=== PATIENT | male | born 1980 ===

== ENCOUNTER 2017-01-06 12:40 | Inpatient (IN) | payer MEDICAID ==
[2017-01-06] MEDS ORDERED: Sodium Chloride 0.9% 1,000 ML IV ONE (12:48)
--- NOTE | 2017-01-06 12:51 | C.PDOC ---
History Of Present Illness The patient, a 36y/o male, presents to the emergency department via EMS for evaluation of severe asthma. 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 As per EMS, patients symptoms improved en route to emergency department. Patients symptoms began around 2-3 days ago. Patient denies fever and states he feels better. Patient has history of prior intubation, does not need intubation at this time. Additional history limited due to patients clinical condition. LIMITED DUE TO CLIN COND PER EMS, ASTHMA SEVERE. PT FOUND RESP DISTRESS. 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 +IMPROVE EN ROUTE. PS SX STARTED 2-3 DAYS. NO FEVER. PS FEELS BETTER. HO PRIOR INTUBATION, DOES NOT NEED INTUBATION @ THIS TIME ROS LIMITED EXAM SEVERE DISTRESS, ON BIPAP HEENT NEG LUNGS TACHYPNEA; DECR BS B/L MOD W EXP WHEEZE; RETRACTIONS; SPEAKING 1-2 WORD CV RRR SINUS TACH SKIN WARM DRY Time Seen by Provider: 01/06/17 12:48 Chief Complaint (Nursing): Respiratory Distress History Per: Patient History/Exam Limitations: clinical condition Current Symptoms Are (Timing): Still Present Associated Symptoms: denies: Fever Additional History Per: Patient Past Medical History Reviewed: Historical Data, Nursing Documentation, Vital Signs Vital Signs: Last Vital Signs Temp 98.2 F 01/06/17 20:13 Pulse 108 H 01/06/17 20:13 Resp 20 01/06/17 20:13 BP 145/89 01/06/17 20:13 Pulse Ox 100 01/06/17 22:46 - Medical History PMH: Anxiety, Asthma, Back Problems, Depression, Fractures (right ankle jaw), Pneumonia (aug 2016 ), Seizures (quetionable due to overdose) Denies: HIV, HTN, Chronic Kidney Disease, Sexually Transmitted Disease Surgical History: No Surg Hx - [facility] Procedures ASSISTANCE WITH RESPIRATORY VENTILATION, 24-96 HRS, CPAP (09/07/16) DRUG DETOXIFICATION (09/23/14) INJECT/INFUSE NEC (07/03/13) INSERTION OF ENDOTRACHEAL AIRWAY INTO TRACHEA, VIA OPENING (11/20/15) RESPIRATORY VENTILATION, 24-96 CONSECUTIVE HOURS (11/20/15) Family History: States: Unknown Family Hx - Social History Hx Tobacco Use: Yes Hx Alcohol Use: No Hx Substance Use: Yes (3-4 years abusing heroin, IV use) - Immunization History Hx Tetanus Toxoid Vaccination: Yes Hx Influenza Vaccination: No Hx Pneumococcal Vaccination: Yes Review Of Systems Review Of Systems: ROS cannot be obtained secondary to pt's inabilty to answer questions. Physical Exam - Physical Exam Appears: Non-toxic, Other (+severe distress, on BiPAP ) Skin: Normal Color, Warm, Dry Head: Atraumatic, Normacephalic Eye(s): bilateral: Normal Inspection, EOMI Ear(s): Bilateral: Normal Nose: Normal, No Discharge Oral Mucosa: Moist Throat: Normal, No Erythema, No Exudate Neck: Normal ROM, Supple Chest: Symmetrical, No Deformity, No Tenderness Cardiovascular: Rhythm Regular, No Murmur, Other (+sinus tachycardia ) Respiratory: Decreased Breath Sounds (bilaterally ), Wheezing (moderate, expiratory ), Other (+tachypnea. speaking 1-2 word sentences. +retractions) Back: Normal Inspection, No Vertebral Tenderness, No Paraspinal Tenderness Extremity: Normal ROM, Capillary Refill (less than 2 seconds) Neurological/Psych: Oriented x3, Normal Speech, Normal Cognition Gait: Steady ED Course And Treatment - Laboratory Results Result Diagrams: 01/06/17 13:36 01/06/17 13:36 ECG: Interpreted By Nh ECG Rhythm: Sinus Tachycardia ECG Interpretation: Abnormal Rate From EC O2 Sat by Pulse Oximetry: 100 (on RA ) Pulse Ox Interpretation: Normal - Other Rad CXR X-Ray: Read By Radiologist Interpretation: Accession No. : [id number]. Patient Name / ID : BRAD JULIAN / [id number]. Exam Date : 01/06/2017 12:56:14 ( Approved ). Study Comment : Sex / Age : M / 36Y. Creator : Chuck Ugarte MD. Dictator : Chuck Ugarte MD. Fire Protection Engineering Technician : Equipment Installation Professional : Chuck Ugarte MD. Approver2 : Report Date : 01/06/2017 13:09:47. My Comment : . PROCEDURE: CHEST RADIOGRAPH, 1 VIEW. HISTORY: SOB. COMPARISON: Comparison chest 11/15. FINDINGS: LUNGS: The interstitial markings are slightly increased and coarsened ; rule out sequela of reactive/inflammatory airway disease and or viral illness. There may be mild atelectasis in the left medial lung base as well. PLEURA: No pneumothorax or pleural fluid seen. CARDIOVASCULAR: Normal. OSSEOUS STRUCTURES: No significant abnormalities. VISUALIZED UPPER ABDOMEN: Normal. OTHER FINDINGS: None. IMPRESSION: The interstitial markings are slightly increased and coarsened ; rule out sequela of reactive/ inflammatory airway disease and or viral illness. There may be mild atelectasis in the left medial lung base as well. Progress Note: Labs, EKG, CXR ordered and reviewed. Pt received IV fluids. Progress - Re-Evaluation Re-evaluation Note: 01/06/17 13:36 APPEARS IMPROVED COMPARED TO INITIAL. VSS. 01/06/17 14:01 D/W DR ESPARZA WILL ADMIT 01/06/17 14:03 D/W DR BOLANOS FOR ICU EVAL WILL EVAL IN ER - Data Reviewed Data Reviewed: Lab, Diagnostic imaging, EKG, Old records - Critical Care Citical Care: Excluding Proc Time Critical Care Time: 90 minutes - Continuity of Care Discussed patient case with:: Patient, PMD Disposition Counseled Patient/Family Regarding: Studies Performed, Diagnosis - Disposition Disposition: HOSPITALIZED Disposition Time: 14:01 Condition: STABLE - POA Present On Arrival: None - Clinical Impression Clinical Impression: Asthma with status asthmaticus - Scribe Statement The provider has reviewed the documentation as recorded by the Scribe (Elin Choe) Provider Attestation: All medical record entries made by the Scribe were at my direction and personally dictated by me. I have reviewed the chart and agree that the record accurately reflects my personal performance of the history, physical exam, medical decision making, and the department course for this patient. I have also personally directed, reviewed, and agree with the discharge instructions and disposition. Decision To Admit - Pt Status Changed To: Hospital Disposition Of: Inpatient - Admit Certification Admit to Inpatient:: After my assessment, the patient will require hospitalization for at least two midnights. This is because of the severity of symptoms shown, intensity of services needed, and/or the medical risk in this patient being treated as an outpatient. - InPatient: Physician Admission Certification:: SEE NOTE - . Bed Request Type: Telemetry Admitting Physician: Kaden Esparza Patient Diagnosis: Asthma with status asthmaticus PROCEDURES - EJ/Peripheral Line Consent Obtained: verbal consent Time Out Performed: Yes Skin Cleansed in Sterile Fashion: Yes Size: 18 IV Secured and Dressing Applied: Yes Patient Tolerated Procedure: Well
--- NOTE | 2017-01-06 13:11 | RAD ---
PROCEDURE: CHEST RADIOGRAPH, 1 VIEW HISTORY: SOB COMPARISON: Comparison chest 11/15/2016 FINDINGS: LUNGS: The interstitial markings are slightly increased and coarsened ; rule out sequela of reactive/inflammatory airway disease and or viral illness. There may be mild atelectasis in the left medial lung base as well. PLEURA: No pneumothorax or pleural fluid seen. CARDIOVASCULAR: Normal. OSSEOUS STRUCTURES: No significant abnormalities. VISUALIZED UPPER ABDOMEN: Normal. OTHER FINDINGS: None. IMPRESSION: The interstitial markings are slightly increased and coarsened ; rule out sequela of reactive/inflammatory airway disease and or viral illness. There may be mild atelectasis in the left medial lung base as well.
[2017-01-06 13:40] LABS: BASO # 0.1 K/uL (0.0-0.2); BASO % 0.4 % (0.0-2.0); EOS # 0.2 K/uL (0.0-0.7); EOS % 1.5 % (0.0-4.0); HEMATOCRIT 42.4 % (35.0-51.0); LYMPH # 0.9 K/uL (1.0-4.3); LYMPH % 5.7 % (20.0-40.0); MEAN CELL VOLUME 84.9 fL (80.0-94.0); MEAN CORPUSCULAR HEMOGLOBIN 27.8 pg (27.0-31.0); MEAN CORPUSCULAR HGB CONC 32.7 g/dL (33.0-37.0); MEAN PLATELET VOLUME 7.8 fL (7.2-11.7); MONO # 0.4 K/uL (0.0-0.8); MONO % 2.5 % (0.0-10.0); PLATELET COUNT 244 K/uL (130-400); RED CELL DISTRIBUTION WIDTH 15.7 % (11.5-14.5); WHITE BLOOD COUNT 14.8 K/uL (4.8-10.8)
[2017-01-06 13:46] LABS: CHLORIDE 99 mmol/L (98-107)
[2017-01-06 13:47] LABS: POTASSIUM 3.9 mmol/L (3.6-5.2); SODIUM 139 mmol/L (132-148)
[2017-01-06 13:49] LABS: GFR AFRICAN-AMERICAN > 60
[2017-01-06 13:50] LABS: BLOOD UREA NITROGEN 13 mg/dL (9-20); CALCIUM 8.7 mg/dl (8.6-10.4); CARBON DIOXIDE 28 mmol/L (22-30); GLUCOSE,RANDOM 143 mg/dL (75-110)
[2017-01-06] MEDS ORDERED: MethylPREDNISolone 40 mg Vial IVP STA (13:55)
[2017-01-06] MEDS ORDERED: guaiFENesin 200 mg/10 ml Syrup UD PO PRN (13:56)
[2017-01-06] MEDS ORDERED: Albuterol 0.083% Inhal Sol (2.5 mg/3 mL) UD ONE (14:09)
[2017-01-06] MEDS: MethylPREDNISolone 40 mg Vial IVP SCH ×2 (14:12→21:50)
[2017-01-06] MEDS: Albuterol 0.083% Inhal Sol (2.5 mg/3 mL) UD INH SCH ×2 (14:17→20:21)
[2017-01-06 14:44] LABS: NEUTROPHIL 86 % (50-75); TOTAL CELLS COUNTED 100
[2017-01-06] MEDS ORDERED: Sodium Chloride 0.9% 1,000 ML ONE (14:58)
[2017-01-06] MEDS ORDERED: MethylPREDNISolone 40 mg Vial IVP SCH (18:00)
[2017-01-07] MEDS: Albuterol 0.083% Inhal Sol (2.5 mg/3 mL) UD INH SCH ×3 (01:20→13:33)
[2017-01-07] MEDS: MethylPREDNISolone 40 mg Vial IVP SCH (10:05)
--- NOTE | 2017-01-07 13:42 | PCM.PSYCH ---
Initial Psychiatric Evaluation - Initial Psychiatric Evaluation Type of Admission: Voluntary Legal Status: Capacity Chief Complaint (in patient's own words): "I'm in pain everywhere" History of Present Illness and Precipitating Events: Pt seen, chart reviewed, case discussed with team. Pt is a 36yo M who is single, lives alone, currently on SSD due to his anxiety and depression. The pt is admitted to for asthma exacerbation, psych was called to consult for pt's opiate use d/o. The patient is well known to the team for multiple visits in the past and one episode of detox 2yrs ago. The pt was seen with the team and appeared to be in active withdrawals, the pt was seen to be uncomfortable and in pain w/ rhinorrhea, abd pain, diarrhea, and nausea. The pt reports that he has been to detox two years ago but only [place]ona to the NA meetings after discharge and managed to stay sober or 4-5 five months. Prior to that period of time, the pt had managed to stay sober for a period of up to 1yr. However, he had relapsed and is now using 10-12 bags of heroin daily. Pt also reports to using xanax, 2mg per day. The patient would like to go to and IOP program or sometime of treatment after discharge this visit. The pt currently denies suicidal ideation, self harming behaviors, homicidal ideation, insomnia, auditory or visual hallucinations. Psych: Depression, Anxiety, Opiate use d/o PMH: Asthma PSH: Jaw and knee surgery Hospitalizations:2-3 times at [facility] [place] Meds: denies Allergies: Aspirin, Iodine FamHx: No significant contributory history Social: 1ppd, 10-12 bags of heroin IV, 2bars of xanax daily. denies EtOH use. Current Medications: Active Medications Generic Name Dose Route Start Last Admin Trade Name Freq PRN Reason Stop Dose Admin Acetaminophen 650 mg 01/06/17 13:57 Tylenol 325mg Tab PO Q6 PRN Headache Albuterol Sulfate 2.5 mg 01/06/17 14:00 01/07/17 13:33 Albuterol 0.083% Inhal Alis (2.5 Mg/3 Ml) Ud INH 2.5 mg RQ6 WENDY Administration Guaifenesin 200 mg 01/06/17 13:56 Robitussin PO Q4H PRN Cough and congestion Methylprednisolone 60 mg 01/06/17 14:15 01/07/17 10:05 Solu-Medrol IVP 60 mg Q12 WENDY Administration Montelukast Sodium 10 mg 01/06/17 22:00 01/06/17 21:50 Singulair PO 10 mg HS WENDY Administration Past Psychiatric History - Past Psychiatric History Previous Treatment History: Inpatient Pertinent Medical Hx (Current Medical&Sleep Prob, Allergies): Allergies Allergy/AdvReac Type Severity Reaction Status Date / Time aspirin Allergy RASH Verified 01/06/17 12:50 iodine Allergy ANAPHYLAXIS Verified 01/06/17 12:50 Albuterol 0.042% [Albuterol 0.042% Inhal Alis (1.25mg/3ml) UD] 3 ml IH Q12H PRN 09/07/16 Albuterol HFA [Ventolin HFA 90 mcg/actuation (8 g)] 2 puff IH [id number] PRN Buprenorphine Hydrochloride [Subutex] 2 mg PO DAILY 11/15/16 Review of Systems - Gastrointestinal Gastrointestinal: Abdominal Pain, Cramping, Diarrhea - Neurological Neurological: UNREMARKABLE - Psychiatric Psychiatric: Anxiety, Difficulty Concentrating, Irritability. absent: Auditory Hallucinations, Hallucinations, Hopelessness, Panic Attacks, Suicidal Ideation, Visual Hallucinations, Tactile Hallucinations Mental Status Examination - Personal Presentation Personal Presentation: Looks stated age - Affect Affect: Constricted - Motor Activity Motor Activity: Calm - Reliability in Providing Information Reliability in Providing Information: Good - Speech Speech: Organized - Mood Mood: Anxious - Formal Thought Process Formal Thought Process: No Impairment - Obsessions/Compulsions Obsessions: No Compulsions: No - Cognitive Functions Orientation: Person, Place, Situation, Time Sensorium: Alert Attention/Concentration: Attentive Abstract Thinking: [place] Estimate of Intelligence: Average Judgement: Intact, as evidence by: Insight regarding need for hospitalization Memory: Recent intact, as evidence by: Ability to recall events of the day, Remote intact, as evidenced by: Ability to recall historical events - Risk Risk: Withdrawal - Limitations Limitations: Living alone DSM 5 DX - DSM 5 DSM 5 Diagnosis: Primary: Opiate use d/o - severe Opiate withdrawal - severe - Recommended/Plan of Treatment Treatment Recommendations and Plan of Treatment: Opiate use d/o - severe -supportive therapy -CT for abstinence Opiate withdrawal - severe -Start methadone taper -prn meds as needed -supportive therapy -monitor for signs of worsening withdrawal
[2017-01-07 15:46] VITALS: BP 134/80; PULSE 86; RESP 18; TEMP 98.6; O2SAT 97
--- NOTE | 2017-01-07 20:16 | CARD ---
APPROVED REPORT EKG Measurement Heart [id number] <Conclusion> Sinus tachycardia Minimal voltage criteria for LVH, may be normal variant Abnormal ECG
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
--- NOTE | 2017-01-08 00:34 | CP.PCM.DIS ---
Provider - Provider Date of Admission: 01/06/17 14:05 Attending physician: Kaden Esparza MD Diagnosis - Discharge Diagnosis (1) Asthma exacerbation Status: Acute Priority: High (2) Opiate dependence Status: Acute Priority: Medium (3) Accidental overdose of heroin Status: Acute Hospital Course - Lab Results Lab Results: Most Recent Lab Values WBC 14.8 K/uL (4.8-10.8) H D 01/06/17 13:36 RBC 5.00 Mil/uL (4.40-5.90) 01/06/17 13:36 Hgb 13.9 g/dL (12.0-18.0) 01/06/17 13:36 Hct 42.4 % (35.0-51.0) 01/06/17 13:36 MCV 84.9 fL (80.0-94.0) 01/06/17 13:36 MCH 27.8 pg (27.0-31.0) 01/06/17 13:36 MCHC 32.7 g/dL (33.0-37.0) L 01/06/17 13:36 RDW 15.7 % (11.5-14.5) H 01/06/17 13:36 Plt Count 244 K/uL (130-400) 01/06/17 13:36 MPV 7.8 fL (7.2-11.7) 01/06/17 13:36 Neut % (Auto) 89.9 % (50.0-75.0) H 01/06/17 13:36 Lymph % (Auto) 5.7 % (20.0-40.0) L 01/06/17 13:36 [place] % (Auto) 2.5 % (0.0-10.0) 01/06/17 13:36 Eos % (Auto) 1.5 % (0.0-4.0) 01/06/17 13:36 Baso % (Auto) 0.4 % (0.0-2.0) 01/06/17 13:36 Neut # 13.3 K/uL (1.8-7.0) H 01/06/17 13:36 Lymph # 0.9 K/uL (1.0-4.3) L 01/06/17 13:36 [place] # 0.4 K/uL (0.0-0.8) 01/06/17 13:36 Eos # 0.2 K/uL (0.0-0.7) 01/06/17 13:36 Baso # 0.1 K/uL (0.0-0.2) 01/06/17 13:36 Neutrophils % (Manual) 86 % (50-75) H 01/06/17 13:36 Band Neutrophils % 8 % (0-2) H 01/06/17 13:36 Lymphocytes % (Manual) 3 % (20-40) L 01/06/17 13:36 Monocytes % (Manual) 3 % (0-10) 01/06/17 13:36 Platelet Estimate Normal (NORMAL) 01/06/17 13:36 RBC Morphology Normal 01/06/17 13:36 Sodium 139 mmol/L (132-148) 01/06/17 13:36 Potassium 3.9 mmol/L (3.6-5.2) 01/06/17 13:36 Chloride 99 mmol/L (98-107) 01/06/17 13:36 Carbon Dioxide 28 mmol/L (22-30) 01/06/17 13:36 Anion Gap 15 (10-20) 01/06/17 13:36 BUN 13 mg/dL (9-20) 01/06/17 13:36 Creatinine 0.8 MG/DL (0.8-1.5) 01/06/17 13:36 Est GFR ( Amer) > 60 01/06/17 13:36 Est GFR (Non-Af Amer) > 60 01/06/17 13:36 Random Glucose 143 mg/dL (75-110) H 01/06/17 13:36 Calcium 8.7 mg/dl (8.6-10.4) 01/06/17 13:36 - Hospital Course Hospital Course: Pt came in with heroin witthdrawn symtoms, he was given methadone yesterday, he say that he feels better, pt is to continue nebulizer treatment, salmetrol and further medical evaluation although pt signed out against medical advice Discharge Exam - Head Exam Head Exam: ATRAUMATIC, NORMAL INSPECTION, NORMOCEPHALIC - Eye Exam Eye Exam: Normal appearance - ENT Exam ENT Exam: Mucous Membranes Moist - Respiratory Exam Respiratory Exam: Decreased Breath Sounds, Rhonchi - Cardiovascular Exam Cardiovascular Exam: REGULAR RHYTHM, +S1, +S2 - GI/Abdominal Exam GI & Abdominal Exam: Normal Bowel Sounds - Skin Additional comments: multiple needle jones and tatoes Discharge Plan - Follow Up Plan Condition: STABLE Disposition: AGAINST MEDICAL ADVICE
== END 2017-01-07 16:40 | disposition left against medical advice (07) | DRG 96 ==
LOC: C.ER 12:40 → C.9E 14:05 → C.6T 18:59
PROVIDERS: ADMIT Internal Medicine; ATTEND Internal Medicine
DX: J45.902 Unspecified asthma with status asthmaticus (principal); F11.23 Opioid dependence with withdrawal; J44.9 Chronic obstructive pulmonary disease, unspecified; T40.1X1A Poisoning by heroin, accidental (unintentional), initial encounter; F32.9 Major depressive disorder, single episode, unspecified; F41.9 Anxiety disorder, unspecified; F17.210 Nicotine dependence, cigarettes, uncomplicated

== ENCOUNTER 2017-01-27 12:47 | Observation (INO) | payer MEDICAID ==
[2017-01-27] MEDS ORDERED: Sodium Chloride 0.9% 1,000 ML IV ONE (12:55)
[2017-01-27] MEDS ORDERED: Albuterol-Ipratrop 3 mg / 0.5 (3 ml) UD INH STA ×2 (12:56→13:38)
[2017-01-27] MEDS ORDERED: Albuterol-Ipratrop 3 mg / 0.5 (3 ml) UD ONE ×2 (13:01→13:51)
[2017-01-27] MEDS ORDERED: Sodium Chloride 0.9% 1,000 ML ONE (13:01)
--- NOTE | 2017-01-27 13:13 | RAD ---
PROCEDURE: CHEST RADIOGRAPH, 1 VIEW. Technique: Single view portable semi erect @ 12:58. HISTORY: SOB COMPARISON: 01/06/2017. FINDINGS: LUNGS: Clear. PLEURA: No pneumothorax or pleural fluid seen. CARDIOVASCULAR: Normal. OSSEOUS STRUCTURES: No significant abnormalities. VISUALIZED UPPER ABDOMEN: Normal. OTHER FINDINGS: None. IMPRESSION: No active disease. No acute/significant interval changes.
[2017-01-27 13:18] LABS: BASO # 0.1 K/uL (0.0-0.2); BASO % 0.4 % (0.0-2.0); EOS # 0.6 K/uL (0.0-0.7); EOS % 4.9 % (0.0-4.0); HEMATOCRIT 40.6 % (35.0-51.0); LYMPH # 2.6 K/uL (1.0-4.3); LYMPH % 22.2 % (20.0-40.0); MEAN CELL VOLUME 85.2 fL (80.0-94.0); MEAN CORPUSCULAR HEMOGLOBIN 27.6 pg (27.0-31.0); MEAN CORPUSCULAR HGB CONC 32.3 g/dL (33.0-37.0); MEAN PLATELET VOLUME 7.9 fL (7.2-11.7); MONO # 0.6 K/uL (0.0-0.8); MONO % 4.8 % (0.0-10.0); RED CELL DISTRIBUTION WIDTH 16.1 % (11.5-14.5); WHITE BLOOD COUNT 11.7 K/uL (4.8-10.8)
[2017-01-27 13:33] LABS: CHLORIDE 99 mmol/L (98-107); SODIUM 136 mmol/L (132-148)
[2017-01-27 13:34] LABS: POTASSIUM 3.8 mmol/L (3.6-5.2)
[2017-01-27 13:35] LABS: GFR AFRICAN-AMERICAN > 60
[2017-01-27 13:36] LABS: ALB/GLOB RATIO 1.3 (1.0-2.1); ALKALINE PHOSPHATASE 90 U/L (38-126); ALT/SGPT 25 U/L (21-72); AST/SGOT 24 U/L (17-59); BILIRUBIN,TOTAL 0.3 mg/dL (0.2-1.3); BLOOD UREA NITROGEN 13 mg/dL (9-20); CARBON DIOXIDE 25 mmol/L (22-30); GLUCOSE,RANDOM 167 mg/dL (75-110); TOTAL PROTEIN 7.4 g/dL (6.3-8.3)
[2017-01-27 13:37] LABS: CALCIUM 8.6 mg/dl (8.6-10.4)
--- NOTE | 2017-01-27 13:49 | C.PDOC ---
History Of Present Illness 36 year old male with a history of asthma, presents to the ED via ALS with complaints of SOB and wheezing. Patient was found in severe respiratory distress and was given Solu-Medrol 125mg, 2.5 mg Brethine subcutaneously, DuoNeb x2, and placed on Bipap. He has a history of heroin abuse and states his last use was yesterday. Time Seen by Provider: 01/27/17 12:53 Chief Complaint (Nursing): Shortness Of Breath History Per: Patient, EMS History/Exam Limitations: no limitations Onset/Duration Of Symptoms: Hrs Current Symptoms Are (Timing): Still Present Past Medical History Reviewed: Historical Data, Nursing Documentation, Vital Signs Vital Signs: Last Vital Signs Temp 98.4 F 01/28/17 07:00 Pulse 104 H 01/28/17 09:00 Resp 20 01/28/17 07:00 BP 143/78 01/28/17 07:00 Pulse Ox 95 01/28/17 07:00 - Medical History PMH: Anxiety, Asthma, Back Problems, Depression, Fractures (right ankle jaw), Pneumonia (aug 2016 ), Seizures (quetionable due to overdose) - [facility] Procedures ASSISTANCE WITH RESPIRATORY VENTILATION, 24-96 HRS, CPAP (09/07/16) DRUG DETOXIFICATION (09/23/14) INJECT/INFUSE NEC (07/03/13) INSERTION OF ENDOTRACHEAL AIRWAY INTO TRACHEA, VIA OPENING (11/20/15) RESPIRATORY VENTILATION, 24-96 CONSECUTIVE HOURS (11/20/15) Family History: States: Unknown Family Hx - Social History Hx Tobacco Use: Yes (1/2 pack) Hx Alcohol Use: No Hx Substance Use: Yes (3-4 years abusing heroin, IV use 5-6 bags) - Immunization History Hx Tetanus Toxoid Vaccination: Yes Hx Influenza Vaccination: No Hx Pneumococcal Vaccination: Yes Review Of Systems Except As Marked, All Systems Reviewed And Found Negative. Constitutional: Negative for: Fever, Chills Cardiovascular: Negative for: Chest Pain, Palpitations Respiratory: Positive for: Shortness of Breath, Wheezing Gastrointestinal: Negative for: Vomiting Physical Exam - Physical Exam Appears: Non-toxic, Other (+Severe respiratory distress) Skin: Normal Color, Warm, Dry Head: Atraumatic, Normacephalic Eye(s): bilateral: Normal Inspection Oral Mucosa: Moist Chest: Symmetrical, No Deformity Cardiovascular: Rhythm Regular Respiratory: No Accessory Muscle Use, Rhonchi (+Scattered rhonchi), Wheezing, Other (Poor air movement) Extremity: Normal ROM Neurological/Psych: Oriented x3 ED Course And Treatment - Laboratory Results Result Diagrams: 01/27/17 13:12 01/27/17 13:12 Lab Interpretation: Normal (trop neg.) ECG: Interpreted By Me ECG Rhythm: Sinus Tachycardia ECG Interpretation: Abnormal Rate From EC O2 Sat by Pulse Oximetry: 100 Pulse Ox Interpretation: Normal - Radiology CXR: Viewed By Me, Read By Radiologist CXR Interpretation: Yes: No Acute Disease, Other (hyperinflated) Progress Note: CXR, EKG, and Blood work ordered and reviewed. Patient treated with Prednisone, Brethine, and DuoNeb. Reevaluation Time: 15:24 Reassessment Condition: Improved (but still hypoxic on RA and unsuitable for d/ c home.) - Physician Consult Information Outcome Of Conversation: 1515: d/w PMD Dr. Dominique crowder to Tele Obs. Critical Care Time - Critical Care Note Total Time (in mins): 90 Documented critical care: time excludes all time spent performing seperately billable procedures. Disposition Doctor Will See Patient In The: Hospital Counseled Patient/Family Regarding: Studies Performed, Diagnosis - Disposition Disposition: HOSPITALIZED Disposition Time: 15:25 Condition: FAIR - Clinical Impression Clinical Impression: Asthma with status asthmaticus - Scribe Statement The provider has reviewed the documentation as recorded by the Scribe Brooke Pike. Provider Attestation: All medical record entries made by the Scribe were at my direction and personally dictated by me. I have reviewed the chart and agree that the record accurately reflects my personal performance of the history, physical exam, medical decision making, and the department course for this patient. I have also personally directed, reviewed, and agree with the discharge instructions and disposition.
[2017-01-27] MEDS ORDERED: guaiFENesin DM 200 mg-20 mg/10 ml UD PO PRN (19:28)
[2017-01-27] MEDS ORDERED: Albuterol 0.083% Inhal Sol (2.5 mg/3 mL) UD INH PRN (19:31)
[2017-01-27] MEDS ORDERED: Albuterol-Ipratrop 3 mg / 0.5 (3 ml) UD INH SCH (20:00)
[2017-01-27] MEDS ORDERED: Fluticasone-Salmeterol 250-50mcg Diskus INH SCH (20:00)
[2017-01-27] MEDS ORDERED: MethylPREDNISolone 40 mg Vial IVP SCH ×2 (22:00)
[2017-01-27] MEDS: MethylPREDNISolone 40 mg Vial IVP SCH (22:04)
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
[2017-01-27 23:35] VITALS: RESP 20
[2017-01-28] MEDS ORDERED: Albuterol-Ipratrop 3 mg / 0.5 (3 ml) UD INH STA (04:19)
[2017-01-28] MEDS: MethylPREDNISolone 40 mg Vial IVP SCH ×2 (06:39→13:55)
[2017-01-28 09:38] VITALS: BP 143/78; PULSE 104; TEMP 98.4
[2017-01-28] MEDS ORDERED: Pantoprazole 40 mg EC Tab PO SCH (10:00)
--- NOTE | 2017-01-28 12:01 | CARD ---
APPROVED REPORT EKG Measurement Heart [id number] <Conclusion> Sinus tachycardia Cannot rule out Inferior infarct, age undetermined Abnormal ECG
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
[2017-01-28] MEDS ORDERED: Albuterol 0.083% Inhal Sol (2.5 mg/3 mL) UD INH SCH (20:00)
[2017-01-29 00:33] VITALS: O2SAT 100
== END 2017-01-28 16:05 | disposition left against medical advice (07) ==
LOC: C.ER 12:47 → C.9E 15:21 → C.5T 17:15
PROVIDERS: ADMIT Internal Medicine; ATTEND Internal Medicine
DX: J45.902 Unspecified asthma with status asthmaticus (principal); F11.23 Opioid dependence with withdrawal; F43.10 Post-traumatic stress disorder, unspecified; F17.200 Nicotine dependence, unspecified, uncomplicated; Z68.20 Body mass index [BMI] 20.0-20.9, adult; F14.10 Cocaine abuse, uncomplicated; F41.0 Panic disorder [episodic paroxysmal anxiety]
CPT/HCPCS: 71010; 80053; 80324; 80345; 80346; 80349; 80353; 80358; 80361; 83992; 84484; 85025; 93005; 94150; 94640; 94660; 96372; 99285; G0378; J2270; J2920; J3105; J7040

== ENCOUNTER 2017-04-10 14:16 | Emergency (ER) | payer MEDICARE ==
[2017-04-10 14:19] VITALS: BMI 21.5
[2017-04-10] MEDS ORDERED: Morphine 4 MG/ML VIAL IV STA (14:19)
[2017-04-10] MEDS ORDERED: Morphine 4 MG/ML VIAL ONE (14:26)
[2017-04-10] MEDS ORDERED: Morphine 4 MG/ML VIAL IM STA (14:41)
[2017-04-10 15:19] VITALS: RESP 18; TEMP 98.1
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
--- NOTE | 2017-04-10 15:58 | RAD ---
PROCEDURE: Left Ankle Radiographs. HISTORY: left ankle pain swelling COMPARISON: None FINDINGS: BONES: A horizontal medial malleoli are fracture at the tibial plafond level is noted with extension to the the talar joint. Light medial cortical offset no more extensive to displacement suggested. Overlying soft tissue swelling present 1 joint effusion is inferred. No talar dome osteochondral lesion appreciated. A well corticated ossification projects over the inferior lateral malleolus probably relating to remote osseous avulsion. JOINTS: As above SOFT TISSUES: As above OTHER FINDINGS: None. IMPRESSION: e.d. of malleoli fracture with intra-articular extension and other findings.
--- NOTE | 2017-04-10 16:00 | RAD ---
PROCEDURE: Left Foot Radiographs. HISTORY: r/o fx COMPARISON: None FINDINGS: BONES: A medial malleoli are fracture is noted in detail on the left ankle x-ray report no definitive cortical fracture elsewhere in the foot appreciated. The trabecular markings are borderline increased along the medial navicular bone. Point tenderness here is are present, consider MRI to evaluate for any potential marrow edema or trabecular microfractures JOINTS: As noted on the ankle x-ray report SOFT TISSUES: Soft tissue swelling present OTHER FINDINGS: None. IMPRESSION: Medial malleoli fracture detailed on the left ankle report Other findings as above
--- NOTE | 2017-04-10 16:01 | RAD ---
PROCEDURE: Radiographs of the left calcaneus/hindfoot. HISTORY: r/o fx COMPARISON: None available. TECHNIQUE: Frontal and lateral radiographs of the calcaneus. FINDINGS: No fracture or joint dislocation. No focal lesion. No calcaneal spur. IMPRESSION: Unremarkable radiographs of the left calcaneus /hindfoot. Patient's medial malleolar fracture is not well appreciated on this exam
--- NOTE | 2017-04-10 16:03 | RAD ---
PROCEDURE: Radiographs of the left tibia and fibula. HISTORY: r/o fx COMPARISON: None available. TECHNIQUE: Frontal and lateral views obtained. FINDINGS: BONES: Medial malleolar fracture appear with slight medial cortical offset. Extension to the tibiotalar joint. Overlying medial soft tissue swelling. Overlying casting material JOINT SPACES: Unremarkable. OTHER FINDINGS: None. IMPRESSION: Medial malleoli are fracture detailed on the ankle with intra-articular extension - now casted No change in positioning appreciated
[2017-04-10 16:06] VITALS: BP 124/78; PULSE 75; O2SAT 98
--- NOTE | 2017-04-10 16:27 | C.PDOC ---
History Of Present Illness 37 yr old male presents to the ER stating he was climbing up to get to his window when he fell 15ft onto his left leg. Reports moderate to severe left ankle pain. Denies LOC, back pain, hip pain, knee pain, weakness or numbness. Time Seen by Provider: 04/10/17 14:38 Chief Complaint (Nursing): Lower Extremity Problem/Injury History Per: Patient History/Exam Limitations: no limitations Onset/Duration Of Symptoms: Sudden Onset ([employer]) Current Symptoms Are (Timing): Still Present Past Medical History Reviewed: Historical Data, Nursing Documentation, Vital Signs Vital Signs: Last Vital Signs Temp 98.1 F 04/10/17 15:17 Pulse 75 04/10/17 16:06 Resp 18 04/10/17 16:06 BP 124/78 04/10/17 16:06 Pulse Ox 98 04/10/17 16:32 - Medical History PMH: Anxiety, Asthma, Back Problems, Depression, Fractures (right ankle jaw), Pneumonia (aug 2016 ), Seizures (quetionable due to overdose) - [facility] Procedures ASSISTANCE WITH RESPIRATORY VENTILATION, 24-96 HRS, CPAP (09/07/16) DRUG DETOXIFICATION (09/23/14) INJECT/INFUSE NEC (07/03/13) INSERTION OF ENDOTRACHEAL AIRWAY INTO TRACHEA, VIA OPENING (11/20/15) RESPIRATORY VENTILATION, 24-96 CONSECUTIVE HOURS (11/20/15) Family History: States: No Known Family Hx - Social History Hx Tobacco Use: Yes (1/2 pack) Hx Alcohol Use: Yes Hx Substance Use: Yes (heroin abuse 6 years) - Immunization History Hx Tetanus Toxoid Vaccination: Yes Hx Influenza Vaccination: No Hx Pneumococcal Vaccination: Yes Review Of Systems Except As Marked, All Systems Reviewed And Found Negative. Musculoskeletal: Positive for: Other ((+) Left ankle pain ). Negative for: Back Pain Neurological: Negative for: Weakness, Numbness Physical Exam - Physical Exam Appears: Non-toxic, No Acute Distress Skin: Warm, Dry Head: Atraumatic, Normacephalic Back: Normal Inspection, No CVA Tenderness Extremity: No Tenderness (Left knee and hip.), No Calf Tenderness, Capillary Refill (<2), Other (Left Ankle - Swelling and deformity to left ankle. Decrease ROM. ) Neurological/Psych: Oriented x3, Normal Speech, Normal Motor ED Course And Treatment O2 Sat by Pulse Oximetry: 98 - Other Rad X-Ray - Left Tibia Fibula X-Ray: Viewed By Me, Read By Radiologist Interpretation: PROCEDURE: Radiographs of the left tibia and fibula. HISTORY: r/o fx. COMPARISON: None available. TECHNIQUE: Frontal and lateral views obtained. FINDINGS: BONES: Medial malleolar fracture appear with slight medial cortical offset. Extension to the tibiotalar joint. Overlying medial soft tissue swelling. Overlying casting material. JOINT SPACES: Unremarkable. OTHER FINDINGS: None. IMPRESSION: Medial malleoli are fracture detailed on the ankle with intra-articular extension - now casted. No change in positioning appreciated X-Ray - Left Heel X-Ray: Viewed By Me, Read By Radiologist Interpretation: PROCEDURE: Radiographs of the left calcaneus/hindfoot. HISTORY : r/o fx. COMPARISON: None available. TECHNIQUE: Frontal and lateral radiographs of the calcaneus. FINDINGS: No fracture or joint dislocation. No focal lesion. No calcaneal spur. IMPRESSION: Unremarkable radiographs of the left calcaneus /hindfoot. Patient's medial malleolar fracture is not well appreciated on this exam. X-Ray - Left Foot X-Ray: Viewed By Me, Read By Radiologist Interpretation: PROCEDURE: Left Foot Radiographs. HISTORY: r/o fx. COMPARISON: None. FINDINGS: BONES: A medial malleoli are fracture is noted in detail on the left ankle x-ray report no definitive cortical fracture elsewhere in the foot appreciated. The trabecular markings are borderline increased along the medial navicular bone. Point tenderness here is are present , consider MRI to evaluate for any potential marrow edema or trabecular microfractures. JOINTS: As noted on the ankle x-ray report. SOFT TISSUES: Soft tissue swelling present. OTHER FINDINGS: None. IMPRESSION: Medial malleoli fracture detailed on the left ankle report. Other findings as above. X-Ray - Left Ankle X-Ray: Viewed By Me, Read By Radiologist Interpretation: PROCEDURE: Left Ankle Radiographs. HISTORY: left ankle pain swelling. COMPARISON: None. FINDINGS: BONES: A horizontal medial malleoli are fracture at the tibial plafond level is noted with extension to the the talar joint. Light medial cortical offset no more extensive to displacement suggested. Overlying soft tissue swelling present 1 joint effusion is inferred. No talar dome osteochondral lesion appreciated. A well corticated ossification projects over the inferior lateral malleolus probably relating to remote osseous avulsion. JOINTS: As above. SOFT TISSUES: As above. OTHER FINDINGS: None. IMPRESSION: e.d. of malleoli fracture with intra-articular extension and other findings. Medical Decision Making Medical Decision Making: PLAN: * X-Ray - Left Ankle, Left Foot, Left Heel, Left Tibia Fibula * Morphine IM Disposition - Disposition Referrals: Gini Urrutia MD [Staff Provider] - Kaden Esparza MD [Primary Care Provider] - Disposition: HOME/ ROUTINE Disposition Time: 15:30 Condition: GOOD Additional Instructions: Thank you for letting us take care of you today. Your provider was Dr. Guillory. You were treated for an ankle fracture. The emergency medical care you received today was directed at your acute symptoms. If you were prescribed any medication, please fill it and take as directed. It may take several days for your symptoms to resolve. Return to the Emergency Department if your symptoms worsen, do not improve, or if you have any other problems. Please contact your doctor or call one of the physicians/clinics you have been referred to that are listed on the Patient Visit Information form that is included in your discharge packet. Bring any paperwork you were given at discharge with you along with any medications you are taking to your follow up visit. Our treatment cannot replace ongoing medical care by a primary care provider (PCP) outside of the emergency department. Thank you for allowing the [facility] team to be part of your care today. DO NOT PUT ANY WEIGHT ON YOUR LEFT LEG. KEEP THE LEG ELEVATED MUCH POSSIBLE. DO NOT TAKE THE SPLINT OFF OR GET IT WET AT ANYTIME. CALL DR. URRUTIA TOMORROW MORNING TO BE AN APPOINTMENT FOR FOLLOWUP. YOU MAY NEED SURGERY. Prescriptions: oxyCODONE [oxyCODONE Immediate Release Tab] 5 mg PO Q6 PRN #15 tab PRN Reason: Pain, Severe (8-10) Instructions: Ankle Fracture (ED), Crutch Instructions (ED) - Clinical Impression Clinical Impression: Ankle fracture - Scribe Statement The provider has reviewed the documentation as recorded by the Scribe Melissa Cruz Provider Attestation: All medical record entries made by the Scribe were at my direction and personally dictated by me. I have reviewed the chart and agree that the record accurately reflects my personal performance of the history, physical exam, medical decision making, and the department course for this patient. I have also personally directed, reviewed, and agree with the discharge instructions and disposition.
== END 2017-04-10 16:08 | disposition home or self-care (01) ==
LOC: C.ER 14:16 → SUPCPDRO 14:16 → C.ER 16:08
DX: S82.52XA Displaced fracture of medial malleolus of left tibia, initial encounter for closed fracture (principal); W17.89XA Other fall from one level to another, initial encounter; Y92.008 Other place in unspecified non-institutional (private) residence as the place of occurrence of the external cause
CPT/HCPCS: 29515; 73590; 73610; 73630; 73650; 96372; 97116; 97161; 99285; G8978; G8979; G8980; J2270

== ENCOUNTER 2017-04-12 19:13 | Emergency (ER) | payer MEDICARE ==
[2017-04-12 19:14] VITALS: BMI 21.5
[2017-04-12 19:48] VITALS: BP 110/73; PULSE 81; TEMP 98.1; O2SAT 98
--- NOTE | 2017-04-12 21:03 | C.PDOC ---
History Of Present Illness 37 year old male presents to the ED with complaints of left ankle pain. Patient states he was seen at [facility] ED on 04/10/2017 after falling and was diagnosed with a left ankle fracture and placed in a splint. He was instructed to follow up with orthopedist and was prescribed oxycodone however he states he was unable to fill the prescription and unable to make appointment with orthopedist due to insurance. Patient states splint is tight and is requesting that it be readjusted. denies any recent trauma or other complaints at this time. Time Seen by Provider: 04/12/17 20:39 Chief Complaint (Nursing): Lower Extremity Problem/Injury History Per: Patient History/Exam Limitations: no limitations Onset/Duration Of Symptoms: Days (original fall occured on 04/10/17 ) Current Symptoms Are (Timing): Still Present Recent travel outside of the [place]: No Additional History Per: Prior Records Past Medical History Reviewed: Historical Data, Nursing Documentation, Vital Signs Vital Signs: Last Vital Signs Temp 98.1 F 04/12/17 19:44 Pulse 81 04/12/17 19:44 Resp 20 04/12/17 23:07 BP 110/73 04/12/17 19:44 Pulse Ox 98 04/13/17 07:20 - Medical History PMH: Anxiety, Asthma, Back Problems, Depression, Fractures (right ankle jaw), Pneumonia (aug 2016 ), Seizures (quetionable due to overdose) - [facility] Procedures ASSISTANCE WITH RESPIRATORY VENTILATION, 24-96 HRS, CPAP (09/07/16) DRUG DETOXIFICATION (09/23/14) INJECT/INFUSE NEC (07/03/13) INSERTION OF ENDOTRACHEAL AIRWAY INTO TRACHEA, VIA OPENING (11/20/15) RESPIRATORY VENTILATION, 24-96 CONSECUTIVE HOURS (11/20/15) Family History: States: Unknown Family Hx - Social History Hx Tobacco Use: Yes (1/2 pack) Hx Alcohol Use: Yes Hx Substance Use: Yes (heroin abuse 6 years) - Immunization History Hx Tetanus Toxoid Vaccination: Yes Hx Influenza Vaccination: No Hx Pneumococcal Vaccination: Yes Review Of Systems Musculoskeletal: Positive for: Foot Pain (left ankle pain ). Negative for: Back Pain, Leg Pain Neurological: Negative for: Weakness, Numbness Physical Exam - Physical Exam Appears: Non-toxic, No Acute Distress Skin: Warm, Dry Eye(s): bilateral: Normal Inspection, PERRL, EOMI Neck: Normal, Midline Cervical Tenderness Extremity: No Pedal Edema, No Calf Tenderness, Capillary Refill (good capillary refill less than two seconds ), Other (moderate ecchymosis to left second, third , and fourth toes. Posterior splint with U components in place with padding appearing slightly tight at dorsal foot and anterior ankle. Splint is also dirty and wet. ) Pulses: Left Dorsalis Pedis: Normal, Right Dorsalis Pedis: Normal Neurological/Psych: Oriented x3 Additional Physical Exam Comments: Extremities: Splint removal revealed whitish discoloration to plantar aspect of left foot. Also showed moderate left lower leg ecchymosis and small blister to distal aspect of lower leg medially. No open wounds or lesions. ED Course And Treatment O2 Sat by Pulse Oximetry: 98 (room air ) Pulse Ox Interpretation: Normal Progress Note: Percocet PO given. small blister was cleaned with betadine, 18 G needle inserted to aspirate blister with minimally serosanguinous fluid drained. Bacitracin applied with non-adherent dressing, then thick padding with splint applied by CP. Pt is requesting a new script for percocet, [place] checked and oxycodeone rx given on 04/12 has not been filled. Pt instructed to follow up with [facility] or [facility], [facility] ( [facility] ) and to be non weight bearing. Pt agrees with plan and return preautions were discussed Reassessment Condition: Improved - Physician Consult Information Time Consulting Physician Contacted: 21:30 (Dr. Urrutia was being covered by Dr. Rosa ) Physician Contacted: Moe Outcome Of Conversation: Dr. Rosa advised for patient to follow up in orthopedic free clinic and to reiterate to patient to be nonn weight bearing on the left ankle. Orthopedic Time Performed: 22:30 Procedure: Splint Type: Posterior (with U component ) Location: Left, Leg (left lower leg ) Consent obtained: Verbal Performed by: Mid-level Provider (done by CP, checked by me) Diagnosis: Fracture (left ankle fracture diagnosed and originally splinted on at [facility] ED ) Patient tolerated procedure: Well Notes:: Large padding moderate amount and soft padding applied to left lower extremity. Medical Decision Making Medical Decision Making: Patient was also given crutches following splint re-application. Disposition Counseled Patient/Family Regarding: Diagnosis, Need For Followup - Disposition Referrals: [facility] [Outside] [facility] [Outside] [facility] at [place] [Outside] Disposition: HOME/ ROUTINE Disposition Time: 21:02 Condition: STABLE Additional Instructions: Please follow up with ortho clinic here at [facility] or at [place] / Call for dates clinic meet Or may follow up with your insurance to get orthopedic referral Take pain meds prescribed Return to ER if worse Prescriptions: oxyCODONE/Acetaminophen [Percocet 5/325 mg Tab] 1 tab PO QID PRN #14 tab PRN Reason: Pain Instructions: Ankle Fracture (ED) - Clinical Impression Clinical Impression: Ankle fracture - Scribe Statement The provider has reviewed the documentation as recorded by the Scribbrii Mercedes All medical record entries made by the Popibbrii were at my direction and personally dictated by me. I have reviewed the chart and agree that the record accurately reflects my personal performance of the history, physical exam, medical decision making, and the department course for this patient. I have also personally directed, reviewed, and agree with the discharge instructions and disposition.
[2017-04-12] MEDS ORDERED: Oxycodone/Acetaminophen 5/325 mg Tab PO STA (22:03)
[2017-04-12] MEDS ORDERED: Oxycodone/Acetaminophen 5/325 mg Tab ONE (22:05)
[2017-04-12 23:10] VITALS: RESP 20
== END 2017-04-12 23:07 | disposition home or self-care (01) ==
LOC: C.ER 19:13
DX: S82.52XD Displaced fracture of medial malleolus of left tibia, subsequent encounter for closed fracture with routine healing (principal); W17.89XD Other fall from one level to another, subsequent encounter

== ENCOUNTER 2017-04-25 17:43 | Inpatient (IN) | payer MEDICAID, MEDICARE ==
[2017-04-25 17:43] VITALS: BMI 21.5
[2017-04-25] MEDS ORDERED: MethylPREDNISolone 40 mg Vial IVP STA (17:52)
[2017-04-25] MEDS ORDERED: Albuterol-Ipratrop 3 mg / 0.5 (3 ml) UD INH STA ×5 (17:52→19:10)
[2017-04-25] MEDS ORDERED: Albuterol-Ipratrop 3 mg / 0.5 (3 ml) UD ONE ×2 (18:02→19:20)
--- NOTE | 2017-04-25 18:05 | C.PDOC ---
History Of Present Illness 37 y/o male pmhx opiate/substance abuse, asthma previously intubated; presents to the ED with complaints of SOB. Per EMS, called to seen for complaints of SOB. Pt reports using Xanax today. At bedside, pt with increased work of breathing, accessory muscle use. No family at bedside. Reviewed prior records, multiple admissions for asthma. Denies fever or any other complaints. Time Seen by Provider: 04/25/17 17:46 Chief Complaint (Nursing): Shortness Of Breath History Per: Patient Onset/Duration Of Symptoms: Hrs Current Symptoms Are (Timing): Still Present Severity: Moderate Associated Symptoms: denies: Fever Recent travel outside of the [place]: No Additional History Per: EMS Past Medical History Reviewed: Historical Data, Nursing Documentation, Vital Signs Vital Signs: Last Vital Signs Temp 96 F L 04/25/17 17:54 Pulse 127 H 04/25/17 18:53 Resp 39 H 04/25/17 18:53 BP 178/106 H 04/25/17 18:53 Pulse Ox 100 04/25/17 20:01 - Medical History PMH: Anxiety, Asthma, Back Problems, Depression, Fractures (fracture left ankle from a fall), Pneumonia (aug 2016 ), Seizures (questionable due to overdose) Denies: Chronic Kidney Disease - [facility] Procedures ASSISTANCE WITH RESPIRATORY VENTILATION, 24-96 HRS, CPAP (09/07/16) DRUG DETOXIFICATION (09/23/14) INJECT/INFUSE NEC (07/03/13) INSERTION OF ENDOTRACHEAL AIRWAY INTO TRACHEA, VIA OPENING (11/20/15) RESPIRATORY VENTILATION, 24-96 CONSECUTIVE HOURS (11/20/15) Family History: States: Unknown Family Hx - Social History Hx Tobacco Use: Yes (1/2 pack) Hx Alcohol Use: Yes Hx Substance Use: Yes (heroin abuse) - Immunization History Hx Tetanus Toxoid Vaccination: Yes Hx Influenza Vaccination: No Hx Pneumococcal Vaccination: Yes Review Of Systems Except As Marked, All Systems Reviewed And Found Negative. Constitutional: Negative for: Fever, Chills Respiratory: Positive for: Shortness of Breath Physical Exam - Physical Exam Appears: Non-toxic, Other (ill) Skin: Warm, Dry, No Rash Head: Atraumatic, Normacephalic Neck: Normal, Normal ROM, Supple Chest: Symmetrical, No Tenderness Cardiovascular: Rhythm Regular, No Murmur Respiratory: Accessory Muscle Use, No Rales, Rhonchi (diffuse), Wheezing ( diffuse), Other (Increased work of breathing, tachypneic) Gastrointestinal/Abdominal: Normal Exam, Soft, No Tenderness Extremity: Bilateral: Atraumatic Neurological/Psych: Oriented x3 ED Course And Treatment - Laboratory Results Result Diagrams: 04/25/17 18:04 04/25/17 18:04 ECG: Interpreted By Me, Viewed By Me ECG Rhythm: Sinus Tachycardia Rate From EC (BPM) O2 Sat by Pulse Oximetry: 100 (room air) Pulse Ox Interpretation: Normal Critical Care Time - Critical Care Note Total Time (in mins): 45 Documented critical care: time excludes all time spent performing seperately billable procedures. Medical Decision Making Medical Decision Making: asthma drug abuse - pt placed on bipap on arrival 630: pt improving with bipap, tolaterating. pt with persistent wheezing. additional nebs ordered 800: dr villasenor bedside, requests repeat abg prior to icu admission, 830: dr borja accepts icu Disposition - Disposition Disposition: HOSPITALIZED Disposition Time: 20:24 Condition: CRITICAL - Clinical Impression Clinical Impression: Status asthmaticus, Substance abuse - Scribe Statement The provider has reviewed the documentation as recorded by the Logan Ruby Provider Attestation: All medical record entries made by the Popibe were at my direction and personally dictated by me. I have reviewed the chart and agree that the record accurately reflects my personal performance of the history, physical exam, medical decision making, and the department course for this patient. I have also personally directed, reviewed, and agree with the discharge instructions and disposition.
[2017-04-25 18:07] LABS: BASO % 0.3 % (0.0-2.0); EOS # 0.7 K/uL (0.0-0.7); EOS % 6.1 % (0.0-4.0); HEMOGLOBIN 14.6 g/dL (12.0-18.0); LYMPH # 2.7 K/uL (1.0-4.3); LYMPH % 24.6 % (20.0-40.0); MEAN CELL VOLUME 85.7 fL (80.0-94.0); MEAN CORPUSCULAR HGB CONC 31.5 g/dL (33.0-37.0); MEAN PLATELET VOLUME 7.6 fL (7.2-11.7); MONO # 0.5 K/uL (0.0-0.8); MONO % 4.9 % (0.0-10.0); NEUT # 7.1 K/uL (1.8-7.0); NEUT % 64.1 % (50.0-75.0); RBC 5.4 Mil/uL (4.40-5.90); RED CELL DISTRIBUTION WIDTH 15.8 % (11.5-14.5)
[2017-04-25] MEDS ORDERED: Magnesium Sulfate 1 gm in D5W 2 GM/200 ML BAG IVPB ONE (18:08)
[2017-04-25] MEDS: Magnesium Sulfate 1 gm in D5W 1 GM/100 ML BAG IVPB SCH ×2 (18:10→19:09)
[2017-04-25 18:19] LABS: ALBUMIN 4.2 g/dL (3.5-5.0)
[2017-04-25 18:22] LABS: ALB/GLOB RATIO 1.1 (1.0-2.1); AST/SGOT 28 U/L (17-59); GFR AFRICAN-AMERICAN > 60; GFR NON-AFRICAN AMERICAN > 60
[2017-04-25 18:23] LABS: ALT/SGPT 22 U/L (21-72); BLOOD UREA NITROGEN 13 mg/dL (9-20); CALCIUM 9.6 mg/dl (8.6-10.4)
[2017-04-25 18:30] LABS: ABG ALLEN TEST A; ARTERIAL BLOOD GAS HCO3 29.4 mmol/L (21-28); ARTERIAL BLOOD GAS O2 SAT 99.5 % (95-98); ARTERIAL BLOOD GAS PCO2 53 mm/Hg (35-45); ARTERIAL BLOOD GAS PH 7.39 (7.35-7.45); ARTERIAL BLOOD GAS PO2 105 mm/Hg (80-100); ARTERIAL BLOOD GAS TCO2 33.7 mmol/L (22-28)
[2017-04-25 19:45] LABS: BARBITURATES, UR NEGATIVE (NEGATIVE); BENZODIAZEPINES, UR POSITIVE (NEGATIVE)
[2017-04-25 19:48] LABS: OPIATES, UR POSITIVE (NEGATIVE); PHENCYCLIDINE, UR NEGATIVE (NEGATIVE)
[2017-04-25 19:51] LABS: SQUAMOUS EPITHIAL 1 /hpf (0-5); URINE BACTERIA RARE (<OCC); URINE BILIRUBIN NEGATIVE (NEGATIVE); URINE BLOOD 1+ (NEGATIVE); URINE CLARITY Clear (Clear); URINE COLOR Yellow (YELLOW); URINE GLUCOSE (UA) NORMAL (Normal); URINE LEUKOCYTE ESTERASE 2+ Leu/uL (Negative); URINE NITRATE NEGATIVE (NEGATIVE); URINE PROTEIN NEGATIVE (NEGATIVE); URINE UROBILINOGEN NORMAL mg/dL (0.2-1.0)
[2017-04-25] MEDS ORDERED: Sodium Chloride 0.9% 1,000 ML IV ONE (19:58)
[2017-04-25] MEDS ORDERED: Azithromycin 500 MG in Sodium Chloride 0.9% 250 ML IVPB STA (20:08)
[2017-04-25 20:19] LABS: ABG ALLEN TEST A; ARTERIAL BLOOD GAS HCO3 25.9 mmol/L (21-28); ARTERIAL BLOOD GAS O2 SAT 98.8 % (95-98); ARTERIAL BLOOD GAS PCO2 44 mm/Hg (35-45); ARTERIAL BLOOD GAS PH 7.39 (7.35-7.45); ARTERIAL BLOOD GAS PO2 89 mm/Hg (80-100)
[2017-04-25] MEDS ORDERED: Sodium Chloride 0.9% 1,000 ML ONE (20:46)
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
[2017-04-25 20:55] LABS: ACETAMINOPHEN < 10.0 ug/mL (10.0-30.0); SALICYLATE < 1.0 mg/dL 1
[2017-04-25] MEDS ORDERED: Albuterol 0.042% Inhal Sol (1.25 mg/3 mL) UD INH PRN (20:55)
[2017-04-25] MEDS ORDERED: Azithromycin 500mg/250ML NS 500 MG/250 ML BAG IVPB ONE ×2 (22:05→22:10)
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
[2017-04-26] MEDS: Potassium Chloride 20 MEQ in Dextrose 5%/0.45% NS 1,000 ML IV SCH ×4 (00:25→13:29)
[2017-04-26] MEDS: Albuterol-Ipratrop 3 mg / 0.5 (3 ml) UD INH SCH ×3 (01:06→13:17)
[2017-04-26] MEDS: MethylPREDNISolone 40 mg Vial IV SCH ×2 (01:09→11:00)
[2017-04-26 06:55] LABS: BASO % 0.1 % (0.0-2.0); HEMOGLOBIN 12.7 g/dL (12.0-18.0); LYMPH # 0.6 K/uL (1.0-4.3); LYMPH % 6.7 % (20.0-40.0); MEAN CELL VOLUME 84.2 fL (80.0-94.0); MEAN CORPUSCULAR HEMOGLOBIN 27.6 pg (27.0-31.0); MEAN CORPUSCULAR HGB CONC 32.8 g/dL (33.0-37.0); MEAN PLATELET VOLUME 8.3 fL (7.2-11.7); MONO # 0.1 K/uL (0.0-0.8); MONO % 1.2 % (0.0-10.0); NEUT # 8.9 K/uL (1.8-7.0); PLATELET COUNT 290 K/uL (130-400); RED CELL DISTRIBUTION WIDTH 15.8 % (11.5-14.5); WHITE BLOOD COUNT 9.6 K/uL (4.8-10.8)
[2017-04-26 07:07] LABS: ALBUMIN 3.7 g/dL (3.5-5.0)
[2017-04-26 07:09] LABS: GFR AFRICAN-AMERICAN > 60; GFR NON-AFRICAN AMERICAN > 60
[2017-04-26 07:10] LABS: ALB/GLOB RATIO 1.1 (1.0-2.1); ALT/SGPT 23 U/L (21-72); AST/SGOT 25 U/L (17-59); BLOOD UREA NITROGEN 10 mg/dL (9-20); CALCIUM 8.9 mg/dl (8.6-10.4)
[2017-04-26 07:11] LABS: MAGNESIUM 2.2 mg/dL (1.6-2.3)
--- NOTE | 2017-04-26 07:32 | CP.PCM.PN ---
Subjective - Date & Time of Evaluation Date of Evaluation: 04/26/17 Time of Evaluation: 21:00 - Subjective Subjective: Pt is less coughing less wheezing, he is agitated and wants to sign out against medical advice Objective - Vital Signs/Intake and Output Vital Signs (last 24 hours): Temp Pulse Resp BP Pulse Ox 98 F 88 22 138/93 H 99 04/26/17 00:00 04/26/17 06:17 04/26/17 03:00 04/26/17 01:10 04/26/17 03:00 Intake and Output: 04/26/17 04/26/17 06:59 18:59 Intake Total 1100 Output Total 500 Balance 600 - Medications Medications: Current Medications Albuterol Sulfate (Albuterol 0.042% Inhal Alis (1.25mg/3ml) Ud) 1.25 mg INH Q3H PRN PRN Reason: Wheezing Albuterol/Ipratropium (Duoneb 3 Mg/0.5 Mg (3 Ml) Ud) 3 ml INH RQ6 [facility] Last Admin: 04/26/17 01:06 Dose: 3 ml Azithromycin (Zithromax) 250 mg PO DAILY [facility] Heparin Sodium (Porcine) (Heparin) 5,000 units SC Q8 [facility] Last Admin: 04/26/17 06:50 Dose: Not Given Ceftriaxone Sodium 1 gm/ (Sodium Chloride) 100 mls @ 100 mls/hr IVPB Q24H [facility] Potassium Chloride 20 meq/ (Dextrose/Sodium Chloride) 1,010 mls @ 150 mls/hr IV .Q6H44M [facility] Last Admin: 04/26/17 06:51 Dose: 150 mls/hr Methylprednisolone (Solu-Medrol) 40 mg IV Q12 [facility] Last Admin: 04/26/17 01:09 Dose: 40 mg Pantoprazole Sodium (Protonix Ec Tab) 40 mg PO DAILY [facility] - Labs Labs: 04/26/17 06:46 04/26/17 06:46 - Constitutional Appears: No Acute Distress, Agitated - Head Exam Head Exam: ATRAUMATIC, NORMAL INSPECTION, NORMOCEPHALIC - Eye Exam Eye Exam: EOMI, Normal appearance, PERRL Pupil Exam: NORMAL ACCOMODATION, PERRL - Respiratory Exam Respiratory Exam: Decreased Breath Sounds, Rhonchi, Wheezes - Cardiovascular Exam Cardiovascular Exam: REGULAR RHYTHM, +S1, +S2. absent: Murmur Assessment and Plan (1) Status asthmaticus Status: Acute (2) Substance abuse Status: Acute (3) Acute respiratory failure Status: Acute (4) Asthma exacerbation Status: Acute
--- NOTE | 2017-04-26 08:18 | RAD ---
PROCEDURE: CHEST RADIOGRAPH, 1 VIEW HISTORY: Detox/Psy COMPARISON: None available. FINDINGS: LUNGS: Hyperinflation suggestive for COPD and or emphysematous changes. Upper lobe granulomatous changes. Diffuse increased interstitial lung markings. Nodular densities at the lung bases may represent nipple shadows. Correlation with nipple markers may be helpful. Additional nodular density projecting over the right lung apex may represent confluence of shadows with ribs and vessels. PLEURA: No pneumothorax or pleural fluid seen. CARDIOVASCULAR: Normal. OSSEOUS STRUCTURES: No significant abnormalities. VISUALIZED UPPER ABDOMEN: Normal. OTHER FINDINGS: None. IMPRESSION: Hyperinflation suggestive for COPD and or emphysematous changes. Upper lobe granulomatous changes. Diffuse increased interstitial lung markings. Nodular densities at the lung bases may represent nipple shadows. Correlation with nipple markers may be helpful. Additional nodular density projecting over the right lung apex may represent confluence of shadows with ribs and vessels.
[2017-04-26 08:54] LABS: ANISOCYTOSIS SLIGHT; BANDS 1 % (0-2); LYMPHOCYTE 7 % (20-40); MONOCYTE 2 % (0-10); NEUTROPHIL 90 % (50-75); PLATELET ESTIMATE NORMAL (NORMAL); TOTAL CELLS COUNTED 100
[2017-04-26 08:55] LABS: OVALOCYTES SLIGHT
[2017-04-26] MEDS ORDERED: Pantoprazole 40 mg EC Tab PO SCH (10:00)
[2017-04-26 17:03] VITALS: BP 132/94; PULSE 94; RESP 22; TEMP 98; O2SAT 97
--- NOTE | 2017-04-28 10:49 | CARD ---
APPROVED REPORT EKG Measurement Heart [id number] <Conclusion> Sinus tachycardia Incomplete right bundle branch block Cannot rule out Anterior infarct, age undetermined Abnormal ECG
--- NOTE | 2017-04-29 14:30 | CP.PCM.DIS ---
Provider - Provider Date of Admission: 04/25/17 20:22 Attending physician: Kaden Esparza MD Time Spent in preparation of Discharge (in minutes): 20 Diagnosis - Discharge Diagnosis (1) Status asthmaticus Status: Acute (2) Substance abuse Status: Acute (3) Acute respiratory failure Status: Acute (4) Asthma exacerbation Status: Acute Priority: High Hospital Course - Lab Results Lab Results: Micro Results 04/25/17 20:30 Blood Blood Culture - Preliminary NO GROWTH AFTER 3 DAYS 04/25/17 Unknown Nose MRSA Culture (Admit) - Final MRSA NOT DETECTED Most Recent Lab Values WBC 9.6 K/uL (4.8-10.8) 04/26/17 06:46 RBC 4.60 Mil/uL (4.40-5.90) 04/26/17 06:46 Hgb 12.7 g/dL (12.0-18.0) 04/26/17 06:46 Hct 38.7 % (35.0-51.0) 04/26/17 06:46 MCV 84.2 fL (80.0-94.0) 04/26/17 06:46 MCH 27.6 pg (27.0-31.0) 04/26/17 06:46 MCHC 32.8 g/dL (33.0-37.0) L 04/26/17 06:46 RDW 15.8 % (11.5-14.5) H 04/26/17 06:46 Plt Count 290 K/uL (130-400) 04/26/17 06:46 MPV 8.3 fL (7.2-11.7) 04/26/17 06:46 Neut % (Auto) 92.0 % (50.0-75.0) H 04/26/17 06:46 Lymph % (Auto) 6.7 % (20.0-40.0) L 04/26/17 06:46 [place] % (Auto) 1.2 % (0.0-10.0) 04/26/17 06:46 Eos % (Auto) 0.0 % (0.0-4.0) 04/26/17 06:46 Baso % (Auto) 0.1 % (0.0-2.0) 04/26/17 06:46 Neut # 8.9 K/uL (1.8-7.0) H 04/26/17 06:46 Lymph # 0.6 K/uL (1.0-4.3) L 04/26/17 06:46 [place] # 0.1 K/uL (0.0-0.8) 04/26/17 06:46 Eos # 0.0 K/uL (0.0-0.7) 04/26/17 06:46 Baso # 0.0 K/uL (0.0-0.2) 04/26/17 06:46 Neutrophils % (Manual) 90 % (50-75) H 04/26/17 06:46 Band Neutrophils % 1 % (0-2) 04/26/17 06:46 Lymphocytes % (Manual) 7 % (20-40) L 04/26/17 06:46 Monocytes % (Manual) 2 % (0-10) 04/26/17 06:46 Platelet Estimate Normal (NORMAL) 04/26/17 06:46 Anisocytosis (manual) Slight 04/26/17 06:46 Ovalocytes Slight 04/26/17 06:46 Puncture Site Rra 04/25/17 20:15 pCO2 44 mm/Hg (35-45) 04/25/17 20:15 pO2 89 mm/Hg (80-100) 04/25/17 20:15 HCO3 25.9 mmol/L (21-28) 04/25/17 20:15 ABG pH 7.39 (7.35-7.45) 04/25/17 20:15 ABG Total CO2 28.0 mmol/L (22-28) 04/25/17 20:15 ABG O2 Saturation 98.8 % (95-98) H 04/25/17 20:15 ABG Base Excess 1.3 mmol/L (-2.0-3.0) 04/25/17 20:15 ABG Hemoglobin 13.0 g/dL (11.7-17.4) 04/25/17 20:15 ABG Carboxyhemoglobin 2.4 % (0.5-1.5) H 04/25/17 20:15 POC ABG HHb (Measured) 1.2 % (0.0-5.0) 04/25/17 20:15 ABG Methemoglobin 1.3 % (0.0-3.0) 04/25/17 20:15 Rj Test A 04/25/17 20:15 ABG Potassium 3.5 mmol/L (3.6-5.2) L 04/25/17 18:20 A-a O2 Difference 213.0 mm/Hg 04/25/17 20:15 Respiratory Index 2.4 04/25/17 20:15 Hgb O2 Saturation 95.1 % (95.0-98.0) 04/25/17 20:15 Sodium 140.0 mmol/l (132-148) 04/25/17 18:20 Chloride 116.0 mmol/L (98-107) H 04/25/17 18:20 Glucose 159 mg/dl (75-110) H 04/25/17 18:20 Lactate 0.8 mmol/L (0.7-2.1) 04/25/17 18:20 FiO2 50.0 % 04/25/17 20:15 Inspiratory BiPAP 14 04/25/17 20:15 Expiratory BiPAP 6 04/25/17 20:15 Sodium 136 mmol/L (132-148) 04/26/17 06:46 Potassium 4.2 mmol/L (3.6-5.2) 04/26/17 06:46 Chloride 102 mmol/L (98-107) 04/26/17 06:46 Carbon Dioxide 25 mmol/L (22-30) 04/26/17 06:46 Anion Gap 14 (10-20) 04/26/17 06:46 BUN 10 mg/dL (9-20) 04/26/17 06:46 Creatinine 0.6 MG/DL (0.8-1.5) L 04/26/17 06:46 Est GFR ( Amer) > 60 04/26/17 06:46 Est GFR (Non-Af Amer) > 60 04/26/17 06:46 POC Glucose (mg/dL) 147 mg/dL (65-110) H 04/25/17 18:00 Random Glucose 206 mg/dL (75-110) H 04/26/17 06:46 Calcium 8.9 mg/dl (8.6-10.4) 04/26/17 06:46 Phosphorus 2.6 mg/dL (2.5-4.5) 04/26/17 06:46 Magnesium 2.2 mg/dL (1.6-2.3) 04/26/17 06:46 Total Bilirubin 0.6 mg/dL (0.2-1.3) 04/26/17 06:46 AST 25 U/L (17-59) 04/26/17 06:46 ALT 23 U/L (21-72) 04/26/17 06:46 Alkaline Phosphatase 81 U/L (38-126) 04/26/17 06:46 Troponin I < 0.0120 ng/mL (0.00-0.120) 04/25/17 18:04 Total Protein 7.2 g/dL (6.3-8.3) 04/26/17 06:46 Albumin 3.7 g/dL (3.5-5.0) 04/26/17 06:46 Globulin 3.5 gm/dL (2.2-3.9) 04/26/17 06:46 Albumin/Globulin Ratio 1.1 (1.0-2.1) 04/26/17 06:46 Arterial Blood Potassium 3.5 mmol/L (3.6-5.2) L 04/25/17 18:20 Urine Color Yellow (YELLOW) 04/25/17 19:30 Urine Clarity Clear (Clear) 04/25/17 19:30 Urine pH 5.0 (5.0-8.0) 04/25/17 19:30 Ur Specific [place] 1.018 (1.003-1.030) 04/25/17 19:30 Urine Protein Negative mg/dL (NEGATIVE) 04/25/17 19:30 Urine Glucose (UA) Normal mg/dL (Normal) 04/25/17 19:30 Urine Ketones Negative mg/dL (NEGATIVE) 04/25/17 19:30 Urine Blood 1+ (NEGATIVE) H 04/25/17 19:30 Urine Nitrate Negative (NEGATIVE) 04/25/17 19:30 Urine Bilirubin Negative (NEGATIVE) 04/25/17 19:30 Urine Urobilinogen Normal mg/dL (0.2-1.0) 04/25/17 19:30 Ur Leukocyte Esterase 2+ Byron/uL (Negative) H 04/25/17 19:30 Urine WBC (Auto) 28 /hpf (0-5) H 04/25/17 19:30 Urine RBC (Auto) 11 /hpf (0-3) H 04/25/17 19:30 Ur Squamous Epith Cells 1 /hpf (0-5) 04/25/17 19:30 Urine Bacteria Rare (<OCC) 04/25/17 19:30 Salicylates < 1.0 mg/dL 1 04/25/17 20:35 Urine Opiates Screen Positive (NEGATIVE) 04/25/17 19:30 Urine Methadone Screen Negative (NEGATIVE) 04/25/17 19:30 Acetaminophen < 10.0 ug/mL (10.0-30.0) L 04/25/17 20:35 Ur Barbiturates Screen Negative (NEGATIVE) 04/25/17 19:30 Ur Phencyclidine Scrn Negative (NEGATIVE) 04/25/17 19:30 Ur Amphetamines Screen Negative (NEGATIVE) 04/25/17 19:30 U Benzodiazepines Scrn Positive (NEGATIVE) 04/25/17 19:30 U Oth Cocaine Metabols Negative (NEGATIVE) 04/25/17 19:30 U Cannabinoids Screen Negative (NEGATIVE) 04/25/17 19:30 Alcohol, Quantitative < 10 mg/dl (0-10) 04/25/17 18:04 - Hospital Course Hospital Course: pt signed out against medical advice Discharge Exam - Head Exam Head Exam: ATRAUMATIC, NORMAL INSPECTION, NORMOCEPHALIC Discharge Plan - Follow Up Plan Condition: GOOD Disposition: AGAINST MEDICAL ADVICE
== END 2017-04-26 16:10 | disposition left against medical advice (07) | DRG 588 ==
LOC: C.ER 17:43 → C.9E 20:22 → C.9I 21:05
PROVIDERS: ADMIT Internal Medicine; ATTEND Internal Medicine
PROC: 5A09357 Assistance with Respiratory Ventilation, Less than 24 Consecutive Hours, Continuous Positive Airway Pressure (ICD-10-PCS; principal; 2017-04-25)
DX: J45.902 Unspecified asthma with status asthmaticus (principal); J96.00 Acute respiratory failure, unspecified whether with hypoxia or hypercapnia; F14.10 Cocaine abuse, uncomplicated; F11.10 Opioid abuse, uncomplicated; E86.0 Dehydration; F17.210 Nicotine dependence, cigarettes, uncomplicated; F41.9 Anxiety disorder, unspecified; F32.9 Major depressive disorder, single episode, unspecified; W19.XXXS Unspecified fall, sequela; S82.892S Other fracture of left lower leg, sequela; Z87.01 Personal history of pneumonia (recurrent); Z91.14 Patient's other noncompliance with medication regimen

== ENCOUNTER 2017-04-28 20:32 | Emergency (ER) | payer MEDICAID ==
[2017-04-28 20:33] VITALS: BMI 21.5
[2017-04-28 21:17] VITALS: BP 147/85; PULSE 74; RESP 16; TEMP 97.9; O2SAT 97
--- NOTE | 2017-04-28 21:40 | C.PDOC ---
History Of Present Illness 37 y/o male presents to the ED requesting narcotic pain medication for left ankle pain. Pt was seen for left ankle fracture 04/10/17, splint applied, instructed to follow up with ortho. Pt states unable to follow up due to insurance issues, they want him to go to ortho in [place] and patient states he can't get there. Discharge information also included instructions for follow up at free clinic at [facility]. Denies numbness, fever, chills or any other complaints. Time Seen by Provider: 04/28/17 21:23 Chief Complaint (Nursing): Lower Extremity Problem/Injury History Per: Patient History/Exam Limitations: no limitations Onset/Duration Of Symptoms: Days Current Symptoms Are (Timing): Still Present Severity: Moderate Recent travel outside of the [place]: No Past Medical History Reviewed: Historical Data, Nursing Documentation, Vital Signs Vital Signs: Last Vital Signs Temp 97.9 F 04/28/17 21:11 Pulse 74 04/28/17 21:11 Resp 16 04/28/17 21:11 BP 147/85 04/28/17 21:11 Pulse Ox 97 04/28/17 22:35 - Medical History PMH: Anxiety, Asthma, Back Problems, Depression, Pneumonia (aug 2016 ), Seizures (questionable due to overdose) Comment Only: Fractures (L ankle s/p fall 04/12/17) - [facility] Procedures ASSISTANCE WITH RESPIRATORY VENTILATION, 24-96 HRS, CPAP (09/07/16) ASSISTANCE WITH RESPIRATORY VENTILATION, <24 HRS, CPAP (04/25/17) DRUG DETOXIFICATION (09/23/14) INJECT/INFUSE NEC (07/03/13) INSERTION OF ENDOTRACHEAL AIRWAY INTO TRACHEA, VIA OPENING (11/20/15) RESPIRATORY VENTILATION, 24-96 CONSECUTIVE HOURS (11/20/15) Family History: States: Unknown Family Hx - Social History Hx Tobacco Use: Yes (1/2 pack) Hx Alcohol Use: No Hx Substance Use: Yes (heroin abuse/ETOH) - Immunization History Hx Tetanus Toxoid Vaccination: Yes Hx Influenza Vaccination: No Hx Pneumococcal Vaccination: Yes Review Of Systems Musculoskeletal: Positive for: Other (left ankle pain) Neurological: Negative for: Weakness, Numbness Physical Exam - Physical Exam Appears: Non-toxic, No Acute Distress Skin: Normal Color, Warm, Dry, No Rash, No Ecchymosis Head: Atraumatic, Normacephalic Extremity: No Pedal Edema, Capillary Refill (<2 seconds), No Swelling Pulses: Left Dorsalis Pedis: Normal Neurological/Psych: Oriented x3, Normal Speech, Normal Motor, Normal Sensation ED Course And Treatment O2 Sat by Pulse Oximetry: 97 (room air) Pulse Ox Interpretation: Normal Progress Note: Splint replaced by CP, healing wound to Lt medial malleolus ( scab), splint checked by me. Pt advised to use crutches, not to bear weight and follow up with free ortho clinic at [facility]. Tramadol PO ordered and pt was d/c home with crutches and recommendation to see ortho w/in the week Disposition - Disposition Referrals: Kaden Esparza MD [Staff Provider] - Disposition: HOME/ ROUTINE Disposition Time: 22:31 Condition: STABLE Additional Instructions: :Please call videoNEXT number for time of orthopedic [facility] clinic Elevate leg/ Use crutches/ Dont bear weight Return to ER if worse Prescriptions: traMADol [Ultram] 50 mg PO TID #14 tab Instructions: Ankle Fracture (ED) - Clinical Impression Clinical Impression: Ankle fracture, left - PA / [employer] / Resident Statement MD/DO has reviewed & agrees with the documentation as recorded. - Scribe Statement The provider has reviewed the documentation as recorded by the Logan Ruby All medical record entries made by the Logan were at my direction and personally dictated by me. I have reviewed the chart and agree that the record accurately reflects my personal performance of the history, physical exam, medical decision making, and the department course for this patient. I have also personally directed, reviewed, and agree with the discharge instructions and disposition.
[2017-04-28] MEDS ORDERED: Bacitracin 500 Units/gm Oint Foilpak UD ONE (21:44)
[2017-04-28] MEDS ORDERED: Tramadol 25 mg PO STA (22:14)
== END 2017-04-28 22:37 | disposition home or self-care (01) ==
LOC: C.ER 20:32
DX: S82.892G Other fracture of left lower leg, subsequent encounter for closed fracture with delayed healing (principal); X58.XXXD Exposure to other specified factors, subsequent encounter

== ENCOUNTER 2017-07-27 01:18 | Emergency (ER) | payer MEDICAID ==
[2017-07-27 01:32] VITALS: BMI 17.9
--- NOTE | 2017-07-27 03:44 | C.PDOC ---
History Of Present Illness 37 year old male brought to the ED by the EMS with police escort for public intoxication. Patient is a known substance abuser. Upon arrival patient was argumentative, foul mouth, confrontational, verbal abusive, and making derogatory comments. Patient is not verbalizing any complaints at this time. Time Seen by Provider: 07/27/17 01:31 Chief Complaint (Nursing): Substance Abuse History Per: Patient History/Exam Limitations: intoxication Onset/Duration Of Symptoms: Hrs Current Symptoms Are (Timing): Still Present Suicide/Self Injury Attempted (Context): None Modifying Factor(s): Alcohol Associated Symptoms: Anger, Agitation Involuntary Hold By: Local Law Enforcement Recent travel outside of the [place]: No Additional History Per: EMS, Law Enforcement Past Medical History Reviewed: Historical Data, Nursing Documentation, Vital Signs Vital Signs: Last Vital Signs Temp 98 F 07/27/17 01:39 Pulse 94 H 07/27/17 04:54 Resp 16 07/27/17 04:54 BP 112/81 07/27/17 04:54 Pulse Ox 97 07/27/17 04:54 - Medical History PMH: Anxiety, Asthma, Back Problems, Depression, Pneumonia (aug 2016 ), Seizures (questionable due to overdose) Denies: Chronic Kidney Disease Comment Only: Fractures (L ankle s/p fall 04/12/17) Surgical History: No Surg Hx - [facility] Procedures ASSISTANCE WITH RESPIRATORY VENTILATION, 24-96 HRS, CPAP (09/07/16) ASSISTANCE WITH RESPIRATORY VENTILATION, <24 HRS, CPAP (04/25/17) DRUG DETOXIFICATION (09/23/14) INJECT/INFUSE NEC (07/03/13) INSERTION OF ENDOTRACHEAL AIRWAY INTO TRACHEA, VIA OPENING (11/20/15) RESPIRATORY VENTILATION, 24-96 CONSECUTIVE HOURS (11/20/15) Family History: States: Unknown Family Hx - Social History Hx Tobacco Use: Yes (1/2 pack) Hx Alcohol Use: No Hx Substance Use: Yes (heroin abuse/ETOH) - Immunization History Hx Tetanus Toxoid Vaccination: Yes Hx Influenza Vaccination: No Hx Pneumococcal Vaccination: Yes Review Of Systems Constitutional: Positive for: Other (Inebriated) Gastrointestinal: Negative for: Vomiting Skin: Positive for: Other (multiple tattoos, no wounds) Neurological: Negative for: Weakness, Numbness Physical Exam - Physical Exam Appears: Combative, Agitated, Other (thin) Skin: Warm, Dry, Other (Multiple tattoos, no wounds) Head: Atraumatic, Normacephalic Eye(s): bilateral: Other (Pin point pupils) Neck: Normal, Supple Chest: Symmetrical Cardiovascular: Rhythm Regular Respiratory: No Rales, Rhonchi (Mild scattered), Wheezing (Mild scattered) Neurological/Psych: Oriented x3, Normal Speech, Normal Cognition ED Course And Treatment O2 Sat by Pulse Oximetry: 96 (Room air) Pulse Ox Interpretation: Normal Progress Note: Luz Baird injection. Patient was placed in 4 point restraints for his own safety and safety of staff after being arugumentative and confrontational towards the staff. approx 0500 pt noted increased labor of breathing and lung exam with more wheezing than initial exam. Prednisone PO and Duoneb INH ordered. re-eval @ 0545: minimal scattered wheezing. Pt counseled on smoking cessation/curbing smoked products. Declines detox. Declines Rx's for prednisone. Accepts Rx for MDI Medical Decision Making Medical Decision Making: recurrent substance abuse Reactive airway disease, related to cigarette and substance smoking, improved with prednisone and inhaled treatments. Disposition Doctor Will See Patient In The: Office Counseled Patient/Family Regarding: Studies Performed, Diagnosis - Disposition Disposition: HOME/ ROUTINE Disposition Time: 05:52 Condition: GOOD Forms: [facility] (Greenlandic) - Clinical Impression Clinical Impression: Drug abuse, Drug dependence, Exacerbation of asthma - Scribe Statement The provider has reviewed the documentation as recorded by the Scribe French Catherine All medical record entries made by the Scribe were at my direction and personally dictated by me. I have reviewed the chart and agree that the record accurately reflects my personal performance of the history, physical exam, medical decision making, and the department course for this patient. I have also personally directed, reviewed, and agree with the discharge instructions and disposition.
[2017-07-27] MEDS ORDERED: Albuterol-Ipratrop 3 mg / 0.5 (3 ml) UD ONE ×3 (05:28→05:35)
[2017-07-27] MEDS ORDERED: Albuterol-Ipratrop 3 mg / 0.5 (3 ml) UD INH STA (05:56)
[2017-07-27 06:16] VITALS: BP 115/71; PULSE 102; RESP 18; TEMP 99; O2SAT 97
== END 2017-07-27 06:42 | disposition home or self-care (01) ==
LOC: C.ER 01:18
DX: J45.901 Unspecified asthma with (acute) exacerbation (principal); F19.20 Other psychoactive substance dependence, uncomplicated

== ENCOUNTER 2017-09-10 11:38 | Emergency (ER) | payer MEDICAID ==
[2017-09-10 11:38] VITALS: BMI 17.9
--- NOTE | 2017-09-10 12:23 | C.PDOC ---
History Of Present Illness 37 y/o male with hx genital warts, c/o rapidly increasing warts, with pain and foul smelling discharge recently. pt was supposed to have warts removed approx 4 months ago, but unable to have procedure because he had a cast and hasn't followed up. pt able to have bowel movements. denies abdominal pain, nausea, vomiting. Time Seen by Provider: 09/10/17 12:01 Chief Complaint (Nursing): Abnormal Skin Integrity History Per: Patient History/Exam Limitations: no limitations Onset/Duration Of Symptoms: Days (one year and worsening) Location Of Injury: Right: Buttock, Left: Buttock Quality Of Symptoms: Painful, Itching Severity: Moderate Past Medical History Reviewed: Historical Data, Nursing Documentation, Vital Signs Vital Signs: Last Vital Signs Temp 97.7 F 09/10/17 13:34 Pulse 76 09/10/17 13:34 Resp 18 09/10/17 13:34 BP 117/60 09/10/17 13:34 Pulse Ox 96 09/10/17 13:34 - Medical History PMH: Anxiety, Asthma, Back Problems, Depression, Pneumonia (aug 2016 ), Seizures (questionable due to overdose) Denies: Chronic Kidney Disease Comment Only: Fractures (L ankle s/p fall 04/12/17) Other PMH: substance abuse Other Surgeries: removal on warts from pubic area - [facility] Procedures ASSISTANCE WITH RESPIRATORY VENTILATION, 24-96 HRS, CPAP (09/07/16) ASSISTANCE WITH RESPIRATORY VENTILATION, <24 HRS, CPAP (04/25/17) DRUG DETOXIFICATION (09/23/14) INJECT/INFUSE NEC (07/03/13) INSERTION OF ENDOTRACHEAL AIRWAY INTO TRACHEA, VIA OPENING (11/20/15) RESPIRATORY VENTILATION, 24-96 CONSECUTIVE HOURS (11/20/15) Family History: States: Unknown Family Hx - Social History Hx Tobacco Use: Yes (1/2 pack) Hx Alcohol Use: Yes Hx Substance Use: Yes (heroin abuse/ETOH) - Immunization History Hx Tetanus Toxoid Vaccination: Yes Hx Influenza Vaccination: Yes Hx Pneumococcal Vaccination: Yes Review Of Systems Constitutional: Negative for: Fever, Chills Gastrointestinal: Negative for: Nausea, Vomiting, Abdominal Pain, Diarrhea, Constipation Genitourinary: Negative for: Dysuria Skin: Positive for: Lesions (perirectal area) Neurological: Negative for: Weakness, Numbness Physical Exam - Physical Exam Appears: Other (thin male, appear [id number]) Skin: Warm, Dry, Other (multiple coalesced warts in perirectal area, warts on bilateral medial buttocks in semicircular pattern, tender with mild induration and warmth ) Gastrointestinal/Abdominal: Soft, No Tenderness Male Genital: Normal Inspection, Other (pt examined with Dr Bolton) Neurological/Psych: Oriented x3, Normal Speech, Normal Cognition ED Course And Treatment - Laboratory Results Result Diagrams: 09/10/17 12:45 09/10/17 12:45 O2 Sat by Pulse Oximetry: 97 Medical Decision Making Medical Decision Making: residential worker to come see patient. message left for Dr Oconnor. [address] Oconnor and Dr Esparza; pt to f/u as an outpatient. Disposition Discussed With Dr.: Debbie Oconnor Doctor Will See Patient In The: Office Counseled Patient/Family Regarding: Studies Performed, Diagnosis, Need For Followup, Rx Given - Disposition Referrals: Debbie Oconnor MD [Staff Provider] - Kaden Esparza MD [Staff Provider] - [facility] [Outside] Disposition: HOME/ ROUTINE Disposition Time: 13:42 Condition: STABLE Additional Instructions: Take antibiotics and pain medication as needed. Follow up with Dr Oconnor as soon as possible- call for nearest appointment, or call [facility] to locate another colo-rectal surgeon. Prescriptions: oxyCODONE/Acetaminophen [Percocet 5/325 mg Tab] 1 ea PO Q6 #8 tab Sulfamethoxazole/Trimethoprim [Bactrim DS 800 mg-160 mg] 1 tab PO BID #20 tab Instructions: Genital Warts (ED) Forms: [facility] (Setswana), General Discharge Instructions - Clinical Impression Clinical Impression: Genital warts
[2017-09-10 12:57] LABS: BASO % 0.3 % (0.0-2.0); EOS # 0.2 K/uL (0.0-0.7); EOS % 2.7 % (0.0-4.0); HEMATOCRIT 38.7 % (35.0-51.0); LYMPH # 2.3 K/uL (1.0-4.3); MEAN CORPUSCULAR HEMOGLOBIN 28.2 pg (27.0-31.0); MEAN CORPUSCULAR HGB CONC 32.7 g/dL (33.0-37.0); MEAN PLATELET VOLUME 7.6 fL (7.2-11.7); MONO # 0.5 K/uL (0.0-0.8); MONO % 7.3 % (0.0-10.0); RED CELL DISTRIBUTION WIDTH 16.4 % (11.5-14.5); WHITE BLOOD COUNT 7.2 K/uL (4.8-10.8)
[2017-09-10 12:58] LABS: MEAN CELL VOLUME 86.3 fL (80.0-94.0)
[2017-09-10] MEDS ORDERED: Tmp-Smz 800 mg-160 mg DS Tab PO STA (13:19)
[2017-09-10] MEDS ORDERED: Oxycodone/Acetaminophen 5/325 mg Tab PO STA (13:19)
[2017-09-10 13:26] LABS: ALB/GLOB RATIO 1.2 (1.0-2.1); ALKALINE PHOSPHATASE 61 U/L (38-126); ALT/SGPT 36 U/L (21-72); AST/SGOT 21 U/L (17-59); BILIRUBIN,TOTAL 0.2 mg/dL (0.2-1.3); BLOOD UREA NITROGEN 15 mg/dL (9-20); CALCIUM 8.4 mg/dl (8.6-10.4); CARBON DIOXIDE 29 mmol/L (22-30); CHLORIDE 100 mmol/L (98-107); GFR AFRICAN-AMERICAN > 60; GLUCOSE,RANDOM 97 mg/dL (75-110); POTASSIUM 4.1 mmol/L (3.6-5.2); SODIUM 139 mmol/L (132-148); TOTAL PROTEIN 6.9 g/dL (6.3-8.3)
[2017-09-10] MEDS ORDERED: Oxycodone/Acetaminophen 5/325 mg Tab ONE (13:33)
[2017-09-10] MEDS ORDERED: Tmp-Smz 800 mg-160 mg DS Tab ONE (13:33)
[2017-09-10 13:35] VITALS: BP 117/60; PULSE 76; RESP 18; TEMP 97.7
[2017-09-10 13:40] VITALS: O2SAT 97
== END 2017-09-10 14:12 | disposition home or self-care (01) ==
LOC: C.ER 11:38
DX: A63.0 Anogenital (venereal) warts (principal)

== ENCOUNTER 2017-10-07 08:49 | Day surgery (SDC) | payer MEDICAID ==
[2017-10-02 13:47] VITALS: BMI 20.9
[2017-10-07] MEDS ORDERED: Lactated Ringer's 1,000 ML IV ONE ×2 (10:00→12:20)
[2017-10-07] MEDS ORDERED: Bupivacaine HCl 0.5% PF (10 ml) Inj ONE (10:08)
[2017-10-07] MEDS ORDERED: Propofol 10 mg/ml Inj (20 ML) ONE (10:10)
[2017-10-07] MEDS ORDERED: Midazolam 2 MG/2 ML VIAL ONE (10:10)
[2017-10-07] MEDS ORDERED: Lidocaine 2% w Epi 1:100,000 Inj IJ ONE (10:15)
[2017-10-07] MEDS ORDERED: Oxycodone/Acetaminophen 5/325 mg Tab PO PRN (11:14)
--- NOTE | 2017-10-07 11:14 | PCM.SURG1 ---
Surgeon's Initial Post Op Note - Surgeon's Notes Surgeon: Dr Oconnor Supervisor Benzene Refining: Dr Marte PGY3 Type of Anesthesia: General Endo Pre-Operative Diagnosis: anogenital warts Operative Findings: as above Post-Operative Diagnosis: as above Operation Performed: destruction of anal lesions Specimen/Specimens Removed: 1. flat sessile anal lesions. 2. condylomas Estimated Blood Loss: EBL {In ML}: 10 Blood Products Given: N/A Drains Used: No Drains Post-Op Condition: Good Date of Surgery/Procedure: 10/07/17 Time of Surgery/Procedure: 11:13
[2017-10-07] MEDS: HYDROmorphone 0.5 mg/0.5 ml ISec IVP PRN ×2 (11:24→11:52)
[2017-10-07 11:44] VITALS: TEMP 97
[2017-10-07 12:35] VITALS: BP 120/80; PULSE 82; RESP 18; O2SAT 100
--- NOTE | 2017-10-07 19:29 | OP ---
PROCEDURE DATE: 10/07/2017 SURGEON: Debbie Oconnor MD SURG TECH: Dr. Puri TYPE OF ANESTHESIA: General. ANESTHESIA ADMINISTERED BY: Dr. Dangelo. PREOPERATIVE DIAGNOSIS: Extensive perianal and anal condylomas. POSTOPERATIVE DIAGNOSIS: Extensive perianal and anal condylomas. PROCEDURE: Excision and fulguration of extensive anal, perianal condylomas. FINDINGS: This is a 37-year-old who presented with a long history of painful bleeding anal warts. They were extensive, circumferential, perianal condylomas, mostly acuminata and some mostly posterior flat sheets of condylomas. There were multiple anal condylomas. DESCRIPTION OF PROCEDURE: After satisfactory general anesthesia, the patient in lithotomy position, the perianal area was prepped and draped in usual fashion. The majority of the condyloma were excised and the small were fulgurated and a few interrupted 3-0 chromic gut sutures were used to control bleeders. The same was done for the anal condyloma. The flat region noted in the posterior right and left location were excised completely and submitted separately for pathology. Some of the ones were closed with 3-0 chromic gut suture and the perianal, anal was infiltrated with combination of Marcaine 0.5% with lidocaine 1% with epinephrine about 10 mL. Surgicel was inserted in the anal canal. Patient tolerated the procedure and transferred to the recovery room in stable condition. Debbie Oconnor MD
== END 2017-10-07 14:43 | disposition home or self-care (01) ==
LOC: C.SDS 08:49
PROVIDERS: ATTEND Colon & Rectal Surgery
DX: A63.0 Anogenital (venereal) warts (principal)
CPT/HCPCS: 46924; 88305; J1170; J2250; J2704; J3010; J7120

== ENCOUNTER 2018-01-02 12:09 | Emergency (ER) | payer MEDICAID ==
[2018-01-02 12:09] VITALS: BMI 20.9
[2018-01-02 12:13] VITALS: RESP 20; O2SAT 92
--- NOTE | 2018-01-02 12:26 | C.PDOC ---
History Of Present Illness 37-year-old male, presents to the emergency department with complaints of slip/ fall while walking on sidewalk today, injuring right forearm. Patient reports no other injuries. Denies numbness/weakness. Time Seen by Provider: 01/02/18 12:21 Chief Complaint (Nursing): Upper Extremity Problem/Injury History Per: Patient History/Exam Limitations: no limitations Onset/Duration Of Symptoms: Other (prior to arrival) Past Medical History Reviewed: Historical Data, Nursing Documentation, Vital Signs Vital Signs: Last Vital Signs Temp 98 F 01/02/18 13:50 Pulse 88 01/02/18 13:50 Resp 20 01/02/18 13:50 BP 120/70 01/02/18 13:50 Pulse Ox 92 L 01/02/18 13:51 - Medical History PMH: Anxiety, Asthma (SEVERE PER PT), Back Problems, Depression, Fractures ( Left ankle s/p fall 04/12/17), Pneumonia (Aug 2016 ), Seizures (Questionable due to overdose 8 MONTHS AGO) Denies: Chronic Kidney Disease - [facility] Procedures ASSISTANCE WITH RESPIRATORY VENTILATION, 24-96 HRS, CPAP (09/07/16) ASSISTANCE WITH RESPIRATORY VENTILATION, <24 HRS, CPAP (04/25/17) DRUG DETOXIFICATION (09/23/14) INJECT/INFUSE NEC (07/03/13) INSERTION OF ENDOTRACHEAL AIRWAY INTO TRACHEA, VIA OPENING (11/20/15) RESPIRATORY VENTILATION, 24-96 CONSECUTIVE HOURS (11/20/15) Family History: States: No Known Family Hx - Social History Hx Tobacco Use: Yes (1/2 pack) Hx Alcohol Use: Yes Hx Substance Use: Yes (Heroin abuse) - Immunization History Hx Tetanus Toxoid Vaccination: Yes Hx Influenza Vaccination: Yes Hx Pneumococcal Vaccination: Yes Review Of Systems Respiratory: Negative for: Shortness of Breath Gastrointestinal: Negative for: Vomiting Musculoskeletal: Positive for: Arm Pain, Hand Pain Neurological: Negative for: Weakness, Numbness Physical Exam - Physical Exam Appears: Non-toxic, No Acute Distress Skin: Warm, Dry, No Rash Head: Atraumatic, Normacephalic Eye(s): bilateral: PERRL Nose: Normal Oral Mucosa: Moist Lips: Normal Appearing Neck: Normal ROM Respiratory: No Accessory Muscle Use Extremity: Tenderness, No Deformity, No Swelling, Other (Moderate swelling to dorsal aspect of right hand and distal forearm. ) Pulses: Left Radial: Normal, Right Radial: Normal Neurological/Psych: Oriented x3, Normal Speech, Normal Motor, Normal Sensation ED Course And Treatment O2 Sat by Pulse Oximetry: 92 (RA) Pulse Ox Interpretation: Normal Medical Decision Making Medical Decision Making: Plan: * XR R Arm, R Hand * Tylenol * Reassess and Disposition = Xrays are negative for fracture or dislocation. Volar splint applied by JACQUES Shaw. Disposition - Disposition Referrals: [facility] [Outside] Binh Quiñonez III, MD [Staff Provider] - Disposition: HOME/ ROUTINE Disposition Time: 13:48 Condition: GOOD Additional Instructions: Follow up with the medical doctor within 1-2 days. Return if worsened. Prescriptions: Acetaminophen [Tylenol] 325 mg PO Q6 PRN #30 tab PRN Reason: Pain, Mild (1-3) Instructions: Wrist Fracture (DC) Forms: [employer] (Georgian) - Clinical Impression Clinical Impression: Wrist fracture
[2018-01-02 13:51] VITALS: BP 120/70; PULSE 88; TEMP 98
--- NOTE | 2018-01-02 14:39 | RAD ---
PROCEDURE: Radiographs of the right forearm. HISTORY: arm injury, pain COMPARISON: None available. TECHNIQUE: Frontal and lateral views obtained. FINDINGS: BONES: No acute displaced fracture. JOINT SPACES: No dislocation. OTHER FINDINGS: Soft tissues appear unremarkable. No evidence of radiopaque foreign body. IMPRESSION: No acute displaced fracture or dislocation identified. If symptoms persist, or if there is continued clinical concern, x-ray follow-up in 7-10 days should be considered.
--- NOTE | 2018-01-02 14:41 | RAD ---
PROCEDURE: Right Hand Radiographs. HISTORY: hand injury, pain COMPARISON: None available. FINDINGS: BONES: No acute displaced fracture. JOINTS: No dislocation. SOFT TISSUES: Mild soft tissue swelling. No evidence of radiopaque foreign body. OTHER FINDINGS: None. IMPRESSION: Mild soft tissue swelling. No acute displaced fracture, dislocation, or significant joint effusion identified. If symptoms persist, or if there is continued clinical concern, x-ray follow-up in 7-10 days should be considered.
--- NOTE | 2018-01-02 14:43 | RAD ---
PROCEDURE: Right Wrist Radiographs. HISTORY: fx COMPARISON: None available. FINDINGS: BONES: No acute displaced fracture. JOINTS: No dislocation. SOFT TISSUES: Soft tissue swelling. No evidence of radiopaque foreign body OTHER FINDINGS: None. IMPRESSION: Soft tissue swelling. No acute displaced fracture, dislocation, or significant joint effusion identified. If symptoms persist, or if there is continued clinical concern, x-ray follow-up in 7-10 days should be considered.
== END 2018-01-02 14:00 | disposition home or self-care (01) ==
LOC: C.ER 12:09
DX: S62.101A Fracture of unspecified carpal bone, right wrist, initial encounter for closed fracture (principal); W01.0XXA Fall on same level from slipping, tripping and stumbling without subsequent striking against object, initial encounter; Y93.01 Activity, walking, marching and hiking; Y92.480 Sidewalk as the place of occurrence of the external cause

== ENCOUNTER 2018-01-26 19:29 | Inpatient (IN) | payer MEDICAID ==
[2018-01-26 19:30] VITALS: BMI 20.9
[2018-01-26] MEDS ORDERED: Albuterol-Ipratrop 3 mg / 0.5 (3 ml) UD ONE (20:38)
--- NOTE | 2018-01-26 20:38 | C.PDOC ---
History Of Present Illness 37 year old male with PMHx of asthma presents to the ED requesting detox from heroin. Patient states he used heroin IV and his last use was today. Patient additionally c/o SOB, states he ran out of his medications. Patient denies SI/HI , hallucinations, CP, weakness, numbness. Time Seen by Provider: 01/26/18 20:31 Chief Complaint (Nursing): Substance Abuse History Per: Patient History/Exam Limitations: no limitations Onset/Duration Of Symptoms: Days Current Symptoms Are (Timing): Still Present Suicide/Self Injury Attempted (Context): None Modifying Factor(s): Other (Heroin) Associated Symptoms: denies: Depression, Suicidal Thoughts, Suicidal Plan Recent travel outside of the [place]: No Additional History Per: Patient Past Medical History Reviewed: Historical Data, Nursing Documentation, Vital Signs Vital Signs: Last Vital Signs Temp 98.3 F 01/26/18 21:53 Pulse 90 01/26/18 21:53 Resp 20 01/26/18 21:53 BP 117/70 01/26/18 21:53 Pulse Ox 98 01/26/18 20:41 - Medical History PMH: Anxiety, Asthma (SEVERE PER PT), Back Problems, Depression, Fractures ( Left ankle s/p fall 04/12/17), Pneumonia (Aug 2016 ), Seizures (Questionable due to overdose 8 MONTHS AGO) Denies: Chronic Kidney Disease Surgical History: No Surg Hx - [facility] Procedures ASSISTANCE WITH RESPIRATORY VENTILATION, 24-96 HRS, CPAP (09/07/16) ASSISTANCE WITH RESPIRATORY VENTILATION, <24 HRS, CPAP (04/25/17) DRUG DETOXIFICATION (09/23/14) INJECT/INFUSE NEC (07/03/13) INSERTION OF ENDOTRACHEAL AIRWAY INTO TRACHEA, VIA OPENING (11/20/15) RESPIRATORY VENTILATION, 24-96 CONSECUTIVE HOURS (11/20/15) Family History: States: Unknown Family Hx - Social History Hx Tobacco Use: Yes (1/2 pack) Hx Alcohol Use: Yes Hx Substance Use: Yes (Heroin abuse) - Immunization History Hx Tetanus Toxoid Vaccination: Yes Hx Influenza Vaccination: Yes Hx Pneumococcal Vaccination: Yes Review Of Systems Constitutional: Negative for: Fever, Chills Cardiovascular: Negative for: Chest Pain Respiratory: Positive for: Cough, Shortness of Breath Skin: Negative for: Rash Psych: Negative for: Depression, Suicidal ideation Physical Exam - Physical Exam Appears: Non-toxic, No Acute Distress Skin: Normal Color, Warm, Dry Head: Atraumatic, Normacephalic Eye(s): bilateral: Normal Inspection Nose: No Discharge Oral Mucosa: Moist Throat: Normal, No Erythema, No Exudate Neck: Normal ROM, Supple Chest: Symmetrical Cardiovascular: Rhythm Regular, No Murmur Respiratory: No Rales, No Rhonchi, Wheezing (B/L) Gastrointestinal/Abdominal: Soft, No Tenderness, No Guarding, No Rebound Extremity: Normal ROM, No Tenderness, Capillary Refill (< 2 seconds), No Swelling, Other (posterio arm splint on right forearm ) Pulses: Left Radial: Normal, Right Radial: Normal Neurological/Psych: Oriented x3, Normal Motor, Normal Sensation Gait: Steady ED Course And Treatment - Laboratory Results Result Diagrams: 01/26/18 20:50 01/26/18 20:50 O2 Sat by Pulse Oximetry: 98 (ON RA) Pulse Ox Interpretation: Normal Medical Decision Making Medical Decision Making: Plan: * Labs * Albuterol 3 ml INH * UA * Crisis Labs ordered and reviewed. In my clinical judgment patient is medically cleared and stable for psychiatric/detox admission. KESHIA Butler evaluated patient. Case discussed with Dr Hernandez who accepted patient for detox Disposition Counseled Patient/Family Regarding: Diagnosis - Disposition Disposition: HOSPITALIZED Disposition Time: 22:05 Condition: GOOD - POA Present On Arrival: None - Clinical Impression Clinical Impression: Asthma, Opiate dependence - PA / ANIMAL SCIENCE INSTRUCTOR / Resident Statement MD/DO has reviewed & agrees with the documentation as recorded. - Scribe Statement The provider has reviewed the documentation as recorded by the Scribe French Catherine All medical record entries made by the Scribbrii were at my direction and personally dictated by me. I have reviewed the chart and agree that the record accurately reflects my personal performance of the history, physical exam, medical decision making, and the department course for this patient. I have also personally directed, reviewed, and agree with the discharge instructions and disposition. Decision To Admit - Pt Status Changed To: Hospital Disposition Of: Inpatient - Admit Certification Admit to Inpatient:: After my assessment, the patient will require hospitalization for at least two midnights. This is because of the severity of symptoms shown, intensity of services needed, and/or the medical risk in this patient being treated as an outpatient. - InPatient: Physician Admission Certification: I certify that this patient requires 2 or more midnights of care for the following reason:: patient to be admitted for detox, has opiate dependence - . Bed Request Type: Detox Admitting Physician: Martin Hernandez Patient Diagnosis: Asthma, Opiate dependence
[2018-01-26 20:53] LABS: BASO % 0.2 % (0.0-2.0); EOS # 0.3 K/uL (0.0-0.7); EOS % 2.3 % (0.0-4.0); HEMOGLOBIN 14.1 g/dL (12.0-18.0); LYMPH # 2.8 K/uL (1.0-4.3); LYMPH % 21.3 % (20.0-40.0); MEAN CORPUSCULAR HGB CONC 33.7 g/dL (33.0-37.0); MEAN PLATELET VOLUME 7.4 fL (7.2-11.7); MONO % 7.3 % (0.0-10.0); NEUT # 9.1 K/uL (1.8-7.0); NEUT % 68.9 % (50.0-75.0); RBC 5.04 Mil/uL (4.40-5.90)
[2018-01-26 20:55] LABS: WHITE BLOOD COUNT 13.3 K/uL (4.8-10.8)
[2018-01-26] MEDS: Albuterol-Ipratrop 3 mg / 0.5 (3 ml) UD IH SCH ×2 (20:56→21:34)
[2018-01-26 20:57] LABS: SQUAMOUS EPITHIAL < 1 /hpf (0-5); URINE BACTERIA RARE (<OCC); URINE BILIRUBIN NEGATIVE (NEGATIVE); URINE BLOOD NEGATIVE (NEGATIVE); URINE CLARITY Hazy (Clear); URINE COLOR Yellow (YELLOW); URINE GLUCOSE (UA) NORMAL (Normal); URINE LEUKOCYTE ESTERASE NEG Leu/uL (Negative); URINE PROTEIN NEGATIVE (NEGATIVE)
[2018-01-26 21:06] LABS: ALB/GLOB RATIO 1.1 (1.0-2.1); ALBUMIN 4.3 g/dL (3.5-5.0); ALT/SGPT 28 U/L (21-72); AST/SGOT 21 U/L (17-59); BLOOD UREA NITROGEN 13 mg/dL (9-20); CALCIUM 9.5 mg/dl (8.6-10.4); GFR AFRICAN-AMERICAN > 60; GFR NON-AFRICAN AMERICAN > 60
[2018-01-26 21:10] LABS: BARBITURATES, UR NEGATIVE (NEGATIVE); BENZODIAZEPINES, UR NEGATIVE (NEGATIVE); PHENCYCLIDINE, UR NEGATIVE (NEGATIVE)
[2018-01-26 21:12] LABS: OPIATES, UR POSITIVE (NEGATIVE)
--- NOTE | 2018-01-26 22:36 | PCM.BM ---
<Parish Schnedier - Last Filed: 01/26/18 22:35> Treatment Plan Problems - Problems identified on initial assessmt potential for herion withdrawal Date Initiated: 01/26/18 Time Initiated: 10:35 Status: Active Treatment assets and liabiliti Patient Assests: cooperative, ADL independent Patient Liabilities: substance abuse, medical problems - Milieu Protocol Maintain good personal hygiene: daily Encourage regular showers, daily Remind patient to perform daily oral care, daily Assist patient to perform ADL's Conduct patient checks and document Observation sheet: Q15 minutes Maintain personal safety: every shift Educate patient to report safety concerns to staff, every shift Monitor environment for contraband/sharps Medication safety: Monitor for expected outcome, potential side effects: daily, Assess barriers to learning: daily, Assess readiness for medication education: daily <Martin Hernandez - Last Filed: 01/27/18 14:57> - Diagnosis (1) Opiate dependence Status: Acute Interventions: 01/27/18 14:57 * Assess 7x/week regarding severity of withdrawal * Educate regarding risks, benefits, side effects and alternatives of medications * Use Motivational Interviewing for abstinence * Use CBT for relapse prevention * Medication management for withdrawal symptoms * Encourage medication assisted treatment * <Liza Arias - Last Filed: 01/28/18 08:28> Family Contact Family involvement: Jose/SO not involved - Goals for Treatment Patient goals for treatment: Complete detox and transition to o/p counseling. Discharge/Continuing Care - Education Needs Education Needs: Patient Medication, Patient Diagnosis/Disease Process, Patient Coping Skills, Patient Anger Management skills, Patient Placement options, Patient Community resources - Discharge Discharge Criteria: No longer exhibiting s/s of withdrawal, Reduction of target symptoms Discharge to:: Home, With Family - Treatment Team Participation Patient/Family/SO Statement: 01/28/18 08:28 "I wanna go to outpatient..." Discussed with Family/SO: No Was Patient/Family/SO present at Treatment Team Meeting: Yes
[2018-01-27] MEDS: Albuterol-Ipratrop 3 mg / 0.5 (3 ml) UD INH PRN ×2 (07:10→20:15)
[2018-01-27] MEDS: Albuterol HFA 90 mcg/actuation (8 g) INH PRN ×3 (08:56→20:32)
[2018-01-27] MEDS ORDERED: Buprenorphine Hydrochloride 2 mg SL ONE ×2 (10:25→11:30)
--- NOTE | 2018-01-27 14:54 | PCM.PSYCH ---
Initial Psychiatric Evaluation - Initial Psychiatric Evaluation Type of Admission: Voluntary Legal Status: Capacity Chief Complaint (in patient's own words): "Heroin" History of Present Illness and Precipitating Events: The patient is seen, chart reviewed and case discussed. 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 The patient is using 20 bags IV heroin for the last 1 month or 2. He denies using cocaine but it came positive in his urine and he suspects that it may be put in his heroin. He first started heroin 7 years ago and continued from there. He also uses Xanax 1-2 milligram a day and cigarettes 1 pack per day. He denies alcohol and other drugs. He has been to detox 4 times but no rehabilitation and in the past he went to . He was in a methadone program in [facility] and his dose was 160 mg. Past psych history: Diagnosed with bipolar disorder but has no manic or hypomanic symptoms. He is very likely major depression, recurrent. Currently, however, he denies symptoms. He had one suicide attempt "long ago" Family psych history: Denies Medical history: Asthma Current Medications: Active Medications Generic Name Dose Route Start Last Admin Trade Name Freq PRN Reason Stop Dose Admin Albuterol 1 puff 01/26/18 23:00 01/27/18 13:06 Ventolin Hfa 90 Mcg/Actuation (8 G) INH 1 puff RQ4 PRN Administration SOB Albuterol/Ipratropium 3 ml 01/26/18 23:08 01/27/18 07:10 Duoneb 3 Mg/0.5 Mg (3 Ml) Ud INH 3 ml RQ4 PRN Administration severe SOB Buprenorphine HCl 8 mg 01/28/18 10:27 Subutex SL 02/01/18 10:26 .TAPER WENDY Taper Hydroxyzine HCl 25 mg 01/26/18 23:08 Atarax PO Q44H PRN Anxiety Prednisone 20 mg 01/27/18 10:00 01/27/18 10:31 Prednisone Tab PO 20 mg DAILY WENDY Administration Trazodone HCl 50 mg 01/26/18 23:45 01/26/18 23:43 Desyrel PO 50 mg HS WENDY Administration Past Psychiatric History - Past Psychiatric History Previous Treatment History: Intensive Outpatient Pertinent Medical Hx (Current Medical&Sleep Prob, Allergies): Allergies Allergy/AdvReac Type Severity Reaction Status Date / Time aspirin Allergy RASH Verified 01/26/18 20:29 iodine Allergy ANAPHYLAXIS Verified 01/26/18 20:29 Albuterol Sulfate [Proventil Hfa] 6.7 gm IH PRN PRN 04/28/17 Albuterol HFA [Ventolin HFA 90 mcg/actuation (8 g)] 2 puff IH BID PRN 10/02/17 Review of Systems - Psychiatric Psychiatric: Abnormal Sleep Pattern, Anxiety. absent: Depression, Hallucinations, Homicidal Ideation, Paranoia, Suicidal Ideation Mental Status Examination - Personal Presentation Personal Presentation: Looks stated age - Affect Affect: Constricted - Motor Activity Motor Activity: Calm - Reliability in Providing Information Reliability in Providing Information: Good - Speech Speech: Organized - Mood Mood: Anxious - Formal Thought Process Formal Thought Process: No Impairment - Cognitive Functions Orientation: Person, Place, Situation, Time Sensorium: Alert Attention/Concentration: Attentive Estimate of Intelligence: Average Judgement: Intact, as evidence by: Insight regarding need for hospitalization Memory: Recent intact, as evidence by: Ability to recall events of the day, Remote intact, as evidenced by: Abilit to recall sig. life events - Risk Risk: Withdrawal, Diminished functioning - Strength & Assets Inventory Strength & Assets Inventory: Cooperative - Limitations Limitations: Living alone DSM 5 DX - DSM 5 DSM 5 Diagnosis: Opioid withdrawal Opioid use d/o - severe Tobacco use d/o - severe Sedative hypnotic use d/o - moderate Major depressive d/o -recurrent, mild - Recommended/Plan of Treatment Treatment Recommendations and Plan of Treatment: Start taper with subutex Gabapentin for augmentation As needed medications All risks, benefits and alternatives of the meds discussed, and the pt agreed and understood. Attend groups and activities Supportive therapy and psychoeducation LA for abstinence CBT for relapse prevention Encourage MAT Refer to rehab or IOP, and self-help groups Smoking cessation with LA Nicotine patch if needed Dr. Esparza is called (his PCP) O2 and prednisone, duoned/ventolin 34 min Projected ELOS: 5 days Prognosis: good with treatment - Smoking Cessation Smoking Cessation Initiated: Yes
[2018-01-27] MEDS: guaiFENesin 200 mg/10 ml Syrup UD PO PRN (20:33)
[2018-01-28] MEDS: guaiFENesin 200 mg/10 ml Syrup UD PO PRN (04:45)
[2018-01-28] MEDS: Albuterol HFA 90 mcg/actuation (8 g) INH PRN (04:45)
[2018-01-28] MEDS ORDERED: Buprenorphine Hydrochloride 2 mg SL ONE (08:42)
[2018-01-28 09:41] VITALS: BP 123/75; PULSE 91; RESP 20; TEMP 98.1; O2SAT 95
--- NOTE | 2018-01-28 09:42 | PCM.PYCHDC ---
Mental Status Examination - Mental Status Examination Orientation: Person, Place, Situation, Time Memory: Impaired Mood: Anxious Affect: Constricted Speech: Appropriate Attention: Poor Concentration: Poor Association: WNL Fund of Knowledge: WNL Formal Thought Process: No Impairment Suicidal Ideation: No Current Homicidal Ideation?: No Discharge Summary - Discharge Note Consultations:: List each consultation separately and include: 1. Reason for request. 2. Findings. 3. Follow-up Summary of Hospital Course include:: 1. Description of specific treatment plan utilized for patients during their course of treatmen. 2. Summarize the time- course for resolution of acute symptoms and/or regressed behaviors. 3. Describe issues identified and worked on during hospitalization. 4. Describe medication utilized. 5. Describe medical problems identified and treated. 6. Reassessment of suicide risk Summary of Hospital Course: The patient is seen, chart reviewed and case discussed. 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 The patient is using 20 bags IV heroin for the last 1 month or 2. He denies using cocaine but it came positive in his urine and he suspects that it may be put in his heroin. He first started heroin 7 years ago and continued from there. He also uses Xanax 1-2 milligram a day and cigarettes 1 pack per day. He denies alcohol and other drugs. He has been to detox 4 times but no rehabilitation and in the past he went to . He was in a methadone program in [facility] and his dose was 160 mg. Past psych history: Diagnosed with bipolar disorder but has no manic or hypomanic symptoms. He is very likely major depression, recurrent. Currently, however, he denies symptoms. He had one suicide attempt "long ago" Family psych history: Denies Medical history: Asthma - Diagnosis (1) Opiate dependence Current Visit: No Status: Acute Priority: Medium - Final Diagnosis (DSM 5) Condition upon Discharge: GOOD Disposition: AGAINST MEDICAL ADVICE Follow-up Treatment Plan: Start taper with subutex Gabapentin for augmentation As needed medications All risks, benefits and alternatives of the meds discussed, and the pt agreed and understood. Attend groups and activities Supportive therapy and psychoeducation [place] for abstinence CBT for relapse prevention Encourage MAT Refer to rehab or IOP, and self-help groups Smoking cessation with [place] Nicotine patch if needed Dr. Esparza is called (his PCP) O2 and prednisone, duoned/ventolin 34 min
[2018-01-28] MEDS ORDERED: Buprenorphine Hydrochloride 2 mg SL SCH (10:27)
== END 2018-01-28 09:43 | disposition left against medical advice (07) | DRG 743 ==
LOC: C.ER 19:29 → C.7D 22:09
PROVIDERS: ADMIT Psychiatry & Neurology Psychiatry; ATTEND Psychiatry & Neurology Psychiatry
DX: F11.23 Opioid dependence with withdrawal (principal); F31.9 Bipolar disorder, unspecified; F33.9 Major depressive disorder, recurrent, unspecified; J45.909 Unspecified asthma, uncomplicated; F17.210 Nicotine dependence, cigarettes, uncomplicated

== ENCOUNTER 2018-05-06 18:25 | Emergency (ER) | payer MEDICAID ==
[2018-05-06 18:38] VITALS: BMI 18.3
[2018-05-06 18:43] VITALS: BP 145/96; RESP 20; TEMP 99
[2018-05-06 18:53] VITALS: PULSE 128; O2SAT 95
[2018-05-06] MEDS ORDERED: Albuterol-Ipratrop 3 mg / 0.5 (3 ml) UD IH STA (19:12)
[2018-05-06] MEDS ORDERED: Albuterol 0.083% Inhal Sol (2.5 mg/3 mL) UD IH STA (19:12)
[2018-05-06] MEDS ORDERED: Sodium Chloride 0.9% 1,000 ML IV ONE (19:16)
[2018-05-06] MEDS ORDERED: Piperacillin/Tazobact 3.375 gm 100 ML IV STA (19:17)
--- NOTE | 2018-05-06 19:23 | C.PDOC ---
History Of Present Illness 38 year old male with PMHx of asthma, IV heroin user presents to the ED for evaluation of swelling to his left forearm for the past 2 days. Patient reports that two days ago he noticed the IV injection area got swollen, red and he developed fever, chills, shakes. Patient states today the area started draining. Patient reports he has a long history of asthma and that coughing and wheezing are not unusual for him. Time Seen by Provider: 05/06/18 18:58 Chief Complaint (Nursing): Abnormal Skin Integrity History Per: Patient History/Exam Limitations: no limitations Onset/Duration Of Symptoms: Days (2) Current Symptoms Are (Timing): Still Present Location Of Injury: Left: Forearm Quality Of Symptoms: Painful, Itching, Swollen, Draining Recent travel outside of the [place]: No Additional History Per: Patient Past Medical History Reviewed: Historical Data, Nursing Documentation, Vital Signs Vital Signs: Last Vital Signs Temp 99.0 F 05/06/18 18:37 Pulse 128 H 05/06/18 18:53 Resp 20 05/06/18 18:37 BP 145/96 H 05/06/18 18:37 Pulse Ox 95 05/06/18 19:43 - Medical History PMH: Anxiety, Asthma (SEVERE PER PT), Back Problems, Depression, Fractures ( Left ankle s/p fall 04/12/17), Pneumonia (Aug 2016 ), Seizures (Questionable due to overdose 8 MONTHS AGO) Denies: Chronic Kidney Disease Surgical History: No Surg Hx - [facility] Procedures ASSISTANCE WITH RESPIRATORY VENTILATION, 24-96 HRS, CPAP (09/07/16) ASSISTANCE WITH RESPIRATORY VENTILATION, <24 HRS, CPAP (04/25/17) DRUG DETOXIFICATION (09/23/14) INJECT/INFUSE NEC (07/03/13) INSERTION OF ENDOTRACHEAL AIRWAY INTO TRACHEA, VIA OPENING (11/20/15) RESPIRATORY VENTILATION, 24-96 CONSECUTIVE HOURS (11/20/15) Family History: States: Unknown Family Hx - Social History Hx Tobacco Use: Yes (1/2 pack) Hx Alcohol Use: No Hx Substance Use: Yes - Immunization History Hx Tetanus Toxoid Vaccination: Yes Hx Influenza Vaccination: Yes Hx Pneumococcal Vaccination: Yes Review Of Systems Constitutional: Positive for: Fever, Chills Cardiovascular: Negative for: Chest Pain, Palpitations Respiratory: Positive for: Cough, Wheezing. Negative for: Shortness of Breath Gastrointestinal: Negative for: Nausea, Vomiting, Abdominal Pain Musculoskeletal: Positive for: Arm Pain Neurological: Negative for: Weakness, Numbness Physical Exam - Physical Exam Appears: Non-toxic, No Acute Distress, Other (feel warm) Skin: Normal Color, Warm, Dry Head: Atraumatic, Normacephalic Eye(s): bilateral: Normal Inspection Oral Mucosa: Moist Neck: Normal ROM, Supple Chest: Symmetrical Cardiovascular: Rhythm Regular (tachycardic) Respiratory: No Rales, No Rhonchi, Wheezing (diffuse B/L) Gastrointestinal/Abdominal: Soft, No Tenderness, No Guarding, No Rebound Extremity: Normal ROM, Tenderness (distal left radius), Capillary Refill (< 2 seconds), Swelling (lemon sized over distal left radius with multiple needle jones noted. no fluactuant, firm, tender and wamrth) Pulses: Left Radial: Normal, Right Radial: Normal Neurological/Psych: Oriented x3, Normal Speech, Normal Motor, Normal Sensation Gait: Steady ED Course And Treatment - Laboratory Results Result Diagrams: 05/06/18 19:31 05/06/18 19:31 Lab Interpretation: No Acute Changes O2 Sat by Pulse Oximetry: 95 (ON RA) Pulse Ox Interpretation: Normal Against Medical Advice - AMA Patient Left Against Medical Advice: The patient declines admission to the hospital and wishes to leave the Emergency Department. This action is against my medical advice. This decision was made with informed refusal. The patient was told that admission to the hospital is necessary. Explanation of the reasons why were discussed. The risks of leaving were explained to the patient and include, but are not limited to, worsening of known or currently unknown conditions, permanent disability and from undiagnosed or untreated conditions. The patient has the capacity to make this informed decision and understands my explanation of the current medical problem and risks of leaving. The patient voluntarily accepts these risks and signed an AMA form documenting our conversation. The patient was given the opportunity to ask questions and reconsider. The patient was encouraged to return to the Emergency Department at any time for further care. Medical Decision Making Medical Decision Making: Impression: left forearm swelling and draining IV site Plan: * Labs * CXR * Nebulizer treatment X2 * IV fluids * Vancomycin IV * Zosyn IV * Wound culture * Blood culture Disposition - Disposition Disposition: AGAINST MEDICAL ADVICE Disposition Time: 19:50 Condition: FAIR Forms: [facility] (Hong Konger) - Clinical Impression Clinical Impression: Abscess - Scribe Statement The provider has reviewed the documentation as recorded by the Scribe French Catherine All medical record entries made by the Scribe were at my direction and personally dictated by me. I have reviewed the chart and agree that the record accurately reflects my personal performance of the history, physical exam, medical decision making, and the department course for this patient. I have also personally directed, reviewed, and agree with the discharge instructions and disposition.
[2018-05-06] MEDS ORDERED: Vancomycin 1 GM 1 GM/250 ML BAG IV SCH (19:30)
[2018-05-06 19:35] LABS: BASO % 0.4 % (0.0-2.0); EOS % 0.3 % (0.0-4.0); HEMOGLOBIN 13.8 g/dL (12.0-18.0); LYMPH # 1.7 K/uL (1.0-4.3); LYMPH % 15.6 % (20.0-40.0); MEAN CELL VOLUME 82.5 fL (80.0-94.0); MEAN CORPUSCULAR HEMOGLOBIN 27.8 pg (27.0-31.0); MEAN CORPUSCULAR HGB CONC 33.7 g/dL (33.0-37.0); MEAN PLATELET VOLUME 8.2 fL (7.2-11.7); MONO # 0.7 K/uL (0.0-0.8); MONO % 6.6 % (0.0-10.0); NEUT # 8.4 K/uL (1.8-7.0); NEUT % 77.1 % (50.0-75.0); NRBC % 0.1 % (0.0-2.0); RBC 4.98 Mil/uL (4.40-5.90); RED CELL DISTRIBUTION WIDTH 16.3 % (11.5-14.5); WHITE BLOOD COUNT 10.8 K/uL (4.8-10.8)
[2018-05-06] MEDS ORDERED: Sodium Chloride 0.9% 1,000 ML ONE (19:37)
[2018-05-06 19:55] LABS: ALB/GLOB RATIO 1.1 (1.0-2.1); ALBUMIN 4.3 g/dL (3.5-5.0); ALT/SGPT 23 U/L (21-72); AST/SGOT 16 U/L (17-59); BLOOD UREA NITROGEN 18 mg/dL (9-20); CALCIUM 9.7 mg/dl (8.6-10.4); GFR AFRICAN-AMERICAN > 60; GFR NON-AFRICAN AMERICAN > 60
== END 2018-05-06 19:49 | disposition left against medical advice (07) ==
LOC: C.ER 18:25
DX: L02.414 Cutaneous abscess of left upper limb (principal)

== ENCOUNTER 2018-07-13 16:08 | Emergency (ER) | payer MEDICAID ==
[2018-07-13 16:20] VITALS: BMI 20.7
[2018-07-13] MEDS ORDERED: Albuterol-Ipratrop 3 mg / 0.5 (3 ml) UD ONE ×3 (16:32→20:00)
[2018-07-13] MEDS: Albuterol-Ipratrop 3 mg / 0.5 (3 ml) UD IH SCH (16:54)
[2018-07-13] MEDS ORDERED: MethylPREDNISolone 40 mg Vial ONE (17:08)
[2018-07-13 17:10] LABS: BASO % 0.6 % (0.0-2.0); EOS # 0.4 K/uL (0.0-0.7); EOS % 4.5 % (0.0-4.0); HEMOGLOBIN 13.8 g/dL (12.0-18.0); LYMPH # 1.7 K/uL (1.0-4.3); LYMPH % 21.2 % (20.0-40.0); MEAN CELL VOLUME 83.2 fL (80.0-94.0); MEAN CORPUSCULAR HEMOGLOBIN 27.8 pg (27.0-31.0); MEAN CORPUSCULAR HGB CONC 33.4 g/dL (33.0-37.0); MEAN PLATELET VOLUME 7.4 fL (7.2-11.7); MONO # 0.5 K/uL (0.0-0.8); MONO % 6.1 % (0.0-10.0); NEUT # 5.5 K/uL (1.8-7.0); NEUT % 67.6 % (50.0-75.0); NRBC % 0.1 % (0.0-2.0); RBC 4.95 Mil/uL (4.40-5.90); RED CELL DISTRIBUTION WIDTH 16.8 % (11.5-14.5); WHITE BLOOD COUNT 8.1 K/uL (4.8-10.8)
[2018-07-13 17:25] LABS: ALB/GLOB RATIO 1.2 (1.0-2.1); ALBUMIN 4.6 g/dL (3.5-5.0); BLOOD UREA NITROGEN 15 mg/dL (9-20); CALCIUM 9.6 mg/dl (8.6-10.4); GFR NON-AFRICAN AMERICAN > 60
--- NOTE | 2018-07-13 17:27 | C.PDOC ---
History Of Present Illness <Ekta Hutchinson - Last Filed: 07/13/18 18:56> <Mere Anderson - Last Filed: 07/13/18 21:03> <Mor Bolton - Last Filed: 07/14/18 07:33> 38 y/o male with history of asthma presents to ED with c/o sob and cough since last night. Patient states he ran out of inhaler and nebulizer medication. Patient admits to smoking and using Heroin IV. (+) h/o admissions and intubations in the past for asthma. No new symptoms, feels like his usually asthma exacerbation. Patient denies chest pain, fever, trauma, neck pain, leg swelling or any other complaints at this time. Denies h/o htn. (Ekta Hutchinson) 38 y/o male with history of asthma presents to ED with c/o sob and cough since last night. Patient states he ran out of inhaler and nebulizer medication. Patient admits to smoking and using Heroin IV. (+) h/o admissions and intubations in the past for asthma. No new symptoms, feels like his usually asthma exacerbation. Patient denies chest pain, fever, trauma, neck pain, leg swelling or any other complaints at this time. Denies h/o htn. (Mere Anderson) 38 y/o male with history of asthma presents to ED with c/o sob and cough since last night. Patient states he ran out of inhaler and nebulizer medication. Patient admits to smoking and using Heroin IV. (+) h/o admissions and intubations in the past for asthma. No new symptoms, feels like his usually asthma exacerbation. Patient denies chest pain, fever, trauma, neck pain, leg swelling or any other complaints at this time. Denies h/o htn. (Mor Bolton) History Per: Patient History/Exam Limitations: no limitations Onset/Duration Of Symptoms: Days Current Symptoms Are (Timing): Still Present Initiating Event: Upper Respiratory Illness, Out Of Medications <Ekta Hutchinson - Last Filed: 07/13/18 18:56> <Mere Anderson - Last Filed: 07/13/18 21:03> <Mor Bolton - Last Filed: 07/14/18 07:33> Time Seen by Provider: 07/13/18 16:23 Chief Complaint (Nursing): Shortness Of Breath Past Medical History Reviewed: Historical Data, Nursing Documentation, Vital Signs - Medical History PMH: Anxiety, Asthma (SEVERE PER PT), Back Problems, Depression, Fractures (Left ankle s/p fall 04/12/17), Pneumonia (Aug 2016 ), Seizures (Questionable due to overdose 8 MONTHS AGO) Surgical History: No Surg Hx Family History: States: No Known Family Hx - Social History Hx Tobacco Use: Yes (1/2 pack) Hx Alcohol Use: No Hx Substance Use: Yes - Immunization History Hx Tetanus Toxoid Vaccination: No Hx Influenza Vaccination: No Hx Pneumococcal Vaccination: No <Ekta Hutchinson - Last Filed: 07/13/18 18:56> Vital Signs: Last Vital Signs Temp 98.8 F 07/14/18 06:08 Pulse 100 H 07/14/18 06:08 Resp 24 07/14/18 06:08 BP 146/84 07/14/18 06:08 Pulse Ox 97 07/14/18 06:08 - [facility] Procedures ASSISTANCE WITH RESPIRATORY VENTILATION, 24-96 HRS, CPAP (09/07/16) ASSISTANCE WITH RESPIRATORY VENTILATION, <24 HRS, CPAP (04/25/17) DRUG DETOXIFICATION (09/23/14) INJECT/INFUSE NEC (07/03/13) INSERTION OF ENDOTRACHEAL AIRWAY INTO TRACHEA, VIA OPENING (11/20/15) RESPIRATORY VENTILATION, 24-96 CONSECUTIVE HOURS (11/20/15) Review Of Systems Constitutional: Negative for: Fever, Chills Cardiovascular: Negative for: Chest Pain Respiratory: Positive for: Cough, Shortness of Breath Gastrointestinal: Negative for: Nausea, Vomiting Skin: Negative for: Rash <Ekta Hutchinson - Last Filed: 07/13/18 18:56> Physical Exam - Physical Exam Appears: Non-toxic, In Acute Distress (respiratory) Skin: Warm, Dry, No Rash Head: Atraumatic, Normacephalic Eye(s): bilateral: Normal Inspection, EOMI Nose: Normal Oral Mucosa: Moist Neck: Normal ROM, Supple Chest: Symmetrical Cardiovascular: Rhythm Regular (tachycardia) Respiratory: Wheezing (bilateral) Gastrointestinal/Abdominal: Soft, No Tenderness, No Guarding, No Rebound Extremity: Normal ROM Neurological/Psych: Oriented x3, Normal Speech, Normal Cognition <Ekta Hutchinson - Last Filed: 07/13/18 18:56> ED Course And Treatment - Laboratory Results Result Diagrams: 07/13/18 17:05 07/13/18 17:05 O2 Sat by Pulse Oximetry: 97 (RA) Pulse Ox Interpretation: Normal Progress Note: On reassessment, wheezing persists. Additional neb ordered and mag. CAse endorsed to Dr Anderson pending re-evaluation. <Ekta Hutchinson - Last Filed: 07/13/18 18:56> - Laboratory Results Result Diagrams: 07/13/18 17:05 07/13/18 17:05 Pulse Ox Interpretation: Normal Progress Note: pt still with wheezing and desaturation to 90%. <Mere Anderson - Last Filed: 07/13/18 21:03> - Laboratory Results Result Diagrams: 07/13/18 17:05 07/13/18 17:05 <Mor Bolton - Last Filed: 07/14/18 07:33> Critical Care Time - Critical Care Note Total Time (in mins): 40 Documented critical care: time excludes all time spent performing seperately billable procedures. <Mere Anderson - Last Filed: 07/13/18 21:03> Medical Decision Making <Ekta Hutchinson - Last Filed: 07/13/18 18:56> <Mere Anderson - Last Filed: 07/13/18 21:03> <Mor Bolton - Last Filed: 07/14/18 07:33> Medical Decision Making: I have reviewed the chart. I was available for consult. (Mor Bolton) Disposition - Disposition Disposition Time: 19:01 <Ekta Hutchinson - Last Filed: 07/13/18 18:56> Discussed With : Kaden Esparza Comment: accepted the pt on his service and took over the care at 9:04 PM Doctor Will See Patient In The: Hospital Counseled Patient/Family Regarding: Studies Performed, Diagnosis - POA Present On Arrival: None <Mere Anderson - Last Filed: 07/13/18 21:03> <Mor Bolton - Last Filed: 07/14/18 07:33> - Disposition Disposition: AGAINST MEDICAL ADVICE - Clinical Impression Clinical Impression: Asthma with status asthmaticus, Dyspnea - PA / CLOUD DEVELOPER / Resident Statement MD/DO has reviewed & agrees with the documentation as recorded. - Scribe Statement The provider has reviewed the documentation as recorded by the Scribe <Ekta Hutchinson - Last Filed: 07/13/18 18:56> <Mere Anderson - Last Filed: 07/13/18 21:03> <Mor Bolton - Last Filed: 07/14/18 07:33> - Scribe Statement Mili White All medical record entries made by the Scribe were at my direction and personally dictated by me. I have reviewed the chart and agree that the record accurately reflects my personal performance of the history, physical exam, medical decision making, and the department course for this patient. I have also personally directed, reviewed, and agree with the discharge instructions and disposition. (Ekta Hutchinson) Mili White All medical record entries made by the Scribe were at my direction and personally dictated by me. I have reviewed the chart and agree that the record accurately reflects my personal performance of the history, physical exam, medical decision making, and the department course for this patient. I have also personally directed, reviewed, and agree with the discharge instructions and disposition. (Mere Anderson) Mili White All medical record entries made by the Scribe were at my direction and personally dictated by me. I have reviewed the chart and agree that the record accurately reflects my personal performance of the history, physical exam, medical decision making, and the department course for this patient. I have also personally directed, reviewed, and agree with the discharge instructions and disposition. (Mor Bolton) Decision To Admit <Ekta Hutchinson - Last Filed: 07/13/18 18:56> - Pt Status Changed To: Hospital Disposition Of: Inpatient - Admit Certification Admit to Inpatient:: After my assessment, the patient will require hospitalization for at least two midnights. This is because of the severity of symptoms shown, intensity of services needed, and/or the medical risk in this patient being treated as an outpatient. - InPatient: Physician Admission Certification: I certify that this patient requires 2 or more midnights of care for the following reason:: After my assessment, the patient will require hospitalization for at least two midnights. This is because of the severity of symptoms shown, intensity of services needed, and/or the medical risk in this patient being treated as an outpatient. - . Bed Request Type: Telemetry Admitting Physician: Kaden Esparza <Mere Anderson - Last Filed: 07/13/18 21:03> <Mor Bolton - Last Filed: 07/14/18 07:33> - . Patient Diagnosis: Asthma with status asthmaticus, Dyspnea
[2018-07-13 17:28] LABS: ALT/SGPT 25 U/L (21-72); AST/SGOT 29 U/L (17-59)
[2018-07-13] MEDS ORDERED: Magnesium Sulfate 1 gm in D5W 1 GM/100 ML BAG IV ONE (17:51)
[2018-07-13] MEDS ORDERED: Albuterol-Ipratrop 3 mg / 0.5 (3 ml) UD INH STA (17:52)
[2018-07-13] MEDS ORDERED: Magnesium Sulfate 1 gm in D5W 1 GM/100 ML BAG IVPB ONE ×3 (18:02→19:27)
[2018-07-13] MEDS ORDERED: Sodium Chloride 0.9% 1,000 ML IV ONE (18:11)
[2018-07-13] MEDS ORDERED: Sodium Chloride 0.9% 250 ML IV ONE (18:30)
[2018-07-13] MEDS ORDERED: Albuterol-Ipratrop 3 mg / 0.5 (3 ml) UD IH STA (19:45)
[2018-07-13] MEDS ORDERED: Dexamethasone 4 mg/1 ml IVP STA (19:45)
[2018-07-13] MEDS ORDERED: guaiFENesin 200 mg/10 ml Syrup UD PO PRN (21:27)
[2018-07-13 21:59] LABS: ABG ALLEN TEST POS; ARTERIAL BLOOD GAS HCO3 26.9 mmol/L (21-28); ARTERIAL BLOOD GAS HEMOGLOBIN 13.4 g/dL (11.7-17.4); ARTERIAL BLOOD GAS O2 SAT 97.1 % (95-98); ARTERIAL BLOOD GAS PCO2 36 mm/Hg (35-45); ARTERIAL BLOOD GAS PH 7.47 (7.35-7.45); ARTERIAL BLOOD GAS PO2 63 mm/Hg (80-100); ARTERIAL BLOOD GAS TCO2 27.3 mmol/L (22-28)
[2018-07-13 22:55] VITALS: O2SAT 97
[2018-07-14] MEDS ORDERED: Albuterol 0.083% Inhal Sol (2.5 mg/3 mL) UD INH SCH (02:00)
[2018-07-14] MEDS ORDERED: Albuterol 0.083% Inhal Sol (2.5 mg/3 mL) UD ONE (02:02)
[2018-07-14 06:09] VITALS: BP 146/84; PULSE 100; RESP 24; TEMP 98.8
[2018-07-14] MEDS ORDERED: Fluticasone-Vilanterol 100/25mcg Diskus INH SCH (08:00)
--- NOTE | 2018-07-14 12:20 | RAD ---
Date of service: 07/13/2018 PROCEDURE: CHEST RADIOGRAPH, 1 VIEW HISTORY: SOB COMPARISON: Chest radiographs 10/06/2017. FINDINGS: LUNGS: No interval pulmonary disease appreciated bilaterally. PLEURA: No pneumothorax or pleural fluid seen. CARDIOVASCULAR: Normal. OSSEOUS STRUCTURES: No significant abnormalities. VISUALIZED UPPER ABDOMEN: Normal. OTHER FINDINGS: None. IMPRESSION: No interval acute cardiopulmonary disease appreciated.
== END 2018-07-14 07:03 | disposition left against medical advice (07) ==
LOC: C.ER 16:08 → UNDOADMIN 21:02 → C.9E 21:02 → UNDODISIN 07-14 07:00 → C.ER 07-14 07:03
DX: J45.902 Unspecified asthma with status asthmaticus (principal); R06.00 Dyspnea, unspecified; F41.9 Anxiety disorder, unspecified; Z87.01 Personal history of pneumonia (recurrent); F17.210 Nicotine dependence, cigarettes, uncomplicated
CPT/HCPCS: 71045; 80053; 82803; 85025; 94640; 96361; 96365; 96366; 96375; 99285; J1100; J2930; J3475; J7030

== ENCOUNTER 2018-10-28 15:19 | Outpatient (CLI) | payer MEDICAID | END 2018-10-28 15:20 | disposition home or self-care (01) | LOC: C.RADH 15:19 | DX: J45.909 Unspecified asthma, uncomplicated (principal) ==